=== PATIENT | female | born 1935 | race Caucasian/White ===

== ENCOUNTER → 2023-07-13 10:04 | Outpatient (REF) | payer MEDICARE, OTHER, SELFPAY ==
[2023-07-13 10:25] LABS: HDL Cholesterol 47 mg/dl; LDL Cholesterol, Calculated 59 mg/dl; Total Cholesterol 156 mg/dl (50-199); Triglyceride 250 mg/dl (10-149); Very Low Density Lipoprotein 50 mg/dl (0-30)
== END ==
LOC: OLABN 10:04
PROVIDERS: ATTENDING PHYSICIAN Student in an Organized Health Care Education/Training Program
DX: E78.5 Hyperlipidemia, unspecified (principal)
CPT/HCPCS: 36415; 80061

== ENCOUNTER → 2023-10-05 11:24 | Outpatient (REF) | payer MEDICARE, OTHER, SELFPAY ==
[2023-10-05 12:26] LABS: Blood Urea Nitrogen 15 mg/dl (7-17); Calcium 9.3 mg/dl (8.4-10.2); Carbon Dioxide 28 mmol/L (22-30); Chloride 102 mmol/L (98-107); Glucose 191 mg/dl (70-99); Potassium 4.6 mmol/L (3.5-5.1); Sodium 133 mmol/L (135-145); eGFR > 60.00
[2023-10-05 12:51] LABS: Glycohemoglobin (HgbA1c) 8.7 % (4.0-5.6)
== END ==
LOC: OLABN 11:24
PROVIDERS: ATTENDING PHYSICIAN Student in an Organized Health Care Education/Training Program
DX: R73.9 Hyperglycemia, unspecified (principal); Z79.84 Long term (current) use of oral hypoglycemic drugs
CPT/HCPCS: 36415; 80048; 83036

== ENCOUNTER → 2023-10-06 09:07 | Outpatient (REF) | payer MEDICARE, OTHER, SELFPAY ==
[2023-10-06 11:20] LABS: Glycohemoglobin (HgbA1c) 8.5 % (4.0-5.6)
== END ==
LOC: OLABN 09:07
PROVIDERS: ATTENDING PHYSICIAN Student in an Organized Health Care Education/Training Program
DX: R73.9 Hyperglycemia, unspecified (principal); Z79.84 Long term (current) use of oral hypoglycemic drugs
CPT/HCPCS: 36415; 83036

== ENCOUNTER → 2023-11-04 13:15 | Outpatient (REF) | payer MEDICARE, OTHER, SELFPAY ==
[2023-11-05 13:14] LABS: Glycohemoglobin (HgbA1c) 8.6 % (4.0-5.6)
== END ==
LOC: OLABN 13:15
PROVIDERS: ATTENDING PHYSICIAN Student in an Organized Health Care Education/Training Program
DX: R73.9 Hyperglycemia, unspecified (principal); Z79.84 Long term (current) use of oral hypoglycemic drugs
CPT/HCPCS: 36415; 83036

== ENCOUNTER → 2024-01-05 10:53 | Outpatient (REF) | payer MEDICARE, OTHER, SELFPAY ==
[2024-01-05 14:08] LABS: Blood Urea Nitrogen 18 mg/dl (7-17); Calcium 9.1 mg/dl (8.4-10.2); Carbon Dioxide 23 mmol/L (22-30); Chloride 101 mmol/L (98-107); Glucose 224 mg/dl (70-99); Potassium 4.6 mmol/L (3.5-5.1); Sodium 133 mmol/L (135-145); eGFR > 60.00
[2024-01-06 09:08] LABS: Glycohemoglobin (HgbA1c) 8.9 % (4.0-5.6)
== END ==
LOC: OLABN 10:53
PROVIDERS: ATTENDING PHYSICIAN Student in an Organized Health Care Education/Training Program
DX: R73.9 Hyperglycemia, unspecified (principal); Z79.84 Long term (current) use of oral hypoglycemic drugs
CPT/HCPCS: 36415; 80048; 83036

== ENCOUNTER → 2024-01-19 10:34 | Outpatient (REF) | payer MEDICARE, OTHER, SELFPAY ==
[2024-01-19 12:34] LABS: TSH 1.73 uIU/ml (0.47-4.68)
== END ==
LOC: OLABN 10:34
PROVIDERS: ATTENDING PHYSICIAN Student in an Organized Health Care Education/Training Program
DX: E03.9 Hypothyroidism, unspecified (principal)
CPT/HCPCS: 36415; 84443

== ENCOUNTER → 2024-04-05 11:16 | Outpatient (REF) | payer MEDICARE, OTHER, SELFPAY ==
[2024-04-05 13:12] LABS: Glycohemoglobin (HgbA1c) 8.4 % (4.0-5.6)
== END ==
LOC: OLABN 11:16
PROVIDERS: ATTENDING PHYSICIAN Student in an Organized Health Care Education/Training Program
DX: R73.9 Hyperglycemia, unspecified (principal); Z79.84 Long term (current) use of oral hypoglycemic drugs
CPT/HCPCS: 36415; 83036

== ENCOUNTER 2024-04-19 03:33 | Inpatient (IN) | payer MEDICARE, OTHER, SELFPAY ==
[2024-04-18 22:06] VITALS: BP 155/65
[2024-04-18 22:11] VITALS: BMI 38.9
[2024-04-18 22:26] LABS: % Basophils 0.3 % (0-2); % Eosinophils 0.2 % (0-6); % Lymphocytes 10.5 % (20.5-51.1); % Monocytes 11.3 % (1.7-9.3); % Neutrophils 76.7 % (42.2-75.2); Absolute Basophils 0.1 10^3/uL (0-0.2); Absolute Immature Granulocytes 0.2 10^3/uL (0-0.05); Absolute Lymphocytes 1.7 10^3/uL (1.2-3.4); Absolute Monocytes 1.8 10^3/uL (0.1-0.6); Absolute Neutrophils 12.4 10^3/uL (1.4-6.5); Hematocrit 45.8 % (37.0-47.0); Mean Corp Hgb Conc. 32.8 g/dL (33.0-37.0); Mean Corpuscular Hgb 28.9 pg (27.0-31.0); Mean Corpuscular Volume 88.2 fL (81.0-99.0); Mean Platelet Volume 11.7 fL (7.4-10.4); Nucleated Red Blood Cells % 0 %; Platelet Count 270 10^3/uL (130-400); Red Blood Cell Count 5.19 10^6/uL (4.20-5.40); Red Cell Dist. Width 13.9 % (11.5-14.5); White Blood Cell Count 16.1 10^3/uL (4.8-10.8)
[2024-04-18 22:34] LABS: Lactic Acid 1.8 mmol/L (0.7-2.0)
[2024-04-18 22:34] LABS: Glucose - Point of Care 282 mg/dl (70-99)
[2024-04-18 22:37] LABS: ALT (SGPT) 58 U/L (0-35); AST (SGOT) 53 U/L (14-36); Albumin 4.3 g/dl (3.5-5.0); Alkaline Phosphatase 90 U/L (38-126); Blood Urea Nitrogen 17 mg/dl (7-17); Calcium 9.4 mg/dl (8.4-10.2); Carbon Dioxide 26 mmol/L (22-30); Chloride 94 mmol/L (98-107); Estimated Creatinine Clearance 48 ml/min; Glucose 299 mg/dl (70-99); Potassium 4.6 mmol/L (3.5-5.1); Sodium 134 mmol/L (135-145); Total Bilirubin 1.1 mg/dl (0.2-1.3); Total Protein 7.5 g/dl (6.3-8.2); eGFR > 60.00
[2024-04-18 23:00] VITALS: BP 141/64
[2024-04-19] VITALS (14 sets, daily range): BP systolic 124–162; BP diastolic 61–84; BMI 29.6
--- NOTE | 2024-04-19 00:01 | ED.GENMED ---
History of Present Illness
General
Chief Complaint: Fainting/Passed Out
Source: family (Daughter), ambulance crew and shelter
Exam Limitations: dementia
Time Seen by Provider: 04/18/24 23:41
Nursing documentation reviewed up to this point in time: agreed with
History of Present Illness
History of Present Illness:
88-year-old female with a past medical history of hypertension, hyperlipidemia, CAD, dementia who presents to the emergency department with her daughter from [facility]; presents for evaluation of left facial swelling and unresponsive episode.
Patient is limited as a historian due to her significant dementia. She cannot meaningfully participate in history. Daughter is at bedside and helps with collateral history: Apparently patient had episode today that was witnessed by staff where she
was briefly unresponsive�apparently was still breathing but difficult to arouse for about 2 minutes. This was primary reason for ER transport however daughter also notes that patient has developed left facial redness and swelling over the past 24
hours. Daughter says that she saw her mother yesterday and her face was normal and today she has redness and swelling and appears to be very tender to the touch.
Past History
Past History
ED Past Medical History: Arrthythmia, HTN, Hypercholesterolemia, NC and Other (Urinary tract infections)
ED Past Surgical History: Appendectomy, Cardiac (Cardiac stent) and Other (Hemorrhoidectomy)
Patient has exhibited threatening behavior?: No
PSI?: No
Social History
Personal:
Living: with family
Employment: Retired
Review of Systems
Review of Systems
Unable to obtain full review of systems at this time due to: dementia
All Other Systems: Not applicable
Phy Exam
Physical Exam
Physical Exam:
General: Laying in bed resting comfortably, arousable to voice
Head: Normocephalic, atraumatic
Eyes: Conjunctiva normal, pupils equal round and reactive to light bilaterally
Throat: Airway intact, handling secretions; patient has poor dentition
Face: Swelling along the left mandible and extends slightly towards the submandibular region; there is significant erythema and tenderness to the touch in this region
Neck: Trachea midline
Lungs: Clear to auscultation bilaterally, no wheezing, rales, rhonchi
Heart: Regular rate and rhythm, no murmurs, gallops, or rubs
Abd: Soft, non distended, no apparent tenderness
Extremities: No edema in extremities, equal pulses in all extremities
Scores
Heart Failure Risk
Heart Failure Risk Score: Not Applicable
Heart Score for Chest Pain Patients
STEMI patient?: Not applicable
Withdrawal Assessment of Alcohol
Withdrawal Assessment Completed?: Not applicable
Course
Orders/Labs/Results
Orders:
Orders
04/18/24 22:05
Electrocardiogram (*1) Urgent
Reason for Study: Syncope
EKG- Treatment ONCE
04/18/24 22:17
Complete Blood Count/With Diff Urgent
Comprehensive Metabolic Panel Urgent
Lactic Acid Urgent
04/19/24 00:00
Diphenhydramine [Benadryl] 50 mg IV NOW STA
Hydrocortisone Sod Succinate [Solu-Cortef] 200 mg IV NOW STA
04/19/24 01:00
Urinalysis Reflex To Culture Urgent
04/19/24 01:01
0.9% Sodium Chloride 1000 ml [Nss] 1,000 ml IV BOLUS
Insulin Aspart [NOVOLOG vial] 5 units SC NOW STA
04/19/24 01:[address] Facial Bones W/ Iv Contrast Urgent
Reason For Exam: left facial redness, swelling
04/19/24 02:01
Lactate Level [Lactic Acid] Urgent
Blood Culture Q30M
CLEMENTINE Source: Blood/Venous
Specimen Description:
Blood Culture Q30M
CLEMENTINE Source: Blood/Venous
Specimen Description:
04/19/24 02:03
COVID-19 Antigen Urgent
Source: Nasal Swab
Troponin I Urgent
Influenza A+B Rapid Molecular Urgent
CLEMENTINE Source: Nasal Swab
Specimen Description:
04/19/24 02:30
Ampicillin/Sulbactam 3 G [Unasyn] 3 gm 0.9% Sodium Chloride 100 ml [Nss] 100 ml IV NOW
Abnormal Lab Results
04/18/24 04/18/24
22:17 22:33
WBC 16.1 H 10^3/uL
(4.8-10.8)
MCHC 32.8 L g/dL
(33.0-37.0)
MPV 11.7 H fL
(7.4-10.4)
Abs Immat Gran (auto) 0.2 H 10^3/uL
(0-0.05)
Absolute Neuts (auto) 12.4 H 10^3/uL
(1.4-6.5)
Absolute Monos (auto) 1.8 H 10^3/uL
(0.1-0.6)
Immature Gran % 1.0 H %
(0-0.5)
Neutrophils % 76.7 H %
(42.2-75.2)
Lymphocytes % 10.5 L %
(20.5-51.1)
Monocytes % 11.3 H %
(1.7-9.3)
Sodium 134 L mmol/L
(135-145)
Chloride 94 L mmol/L
(98-107)
Glucose 299 H mg/dl
(70-99)
AST 53 H U/L
(14-36)
ALT 58 H U/L
(0-35)
POC Glucose 282 H mg/dl
(70-99)
04/18/24 22:17
04/18/24 22:17
Vital Signs
Initial and Last Documented VS:
Initial Vital Signs
Temp Pulse Resp BP Pulse Ox
37.2 C 82 20 155/65 91
04/18/24 22:06 04/18/24 22:06 04/18/24 22:06 04/18/24 22:06 04/18/24 22:06
Last Documented Vital Signs
Temp Pulse Resp BP Pulse Ox
37.2 C 75 15 157/69 90
04/18/24 22:06 04/19/24 02:30 04/19/24 02:30 04/19/24 01:00 04/19/24 02:30
MDM/Problems Addressed
Differential Diagnosis Includes:
Unresponsive episode: Hypoactive delirium, dysrhythmia, seizure
Facial swelling: Dental abscess, facial cellulitis
MDM/Problems Addressed:
88-year-old female presents for evaluation after unresponsive episode; also has increased facial swelling and redness over the past 24 hours. Hypertensive but otherwise normal vitals here. Physical exam as above. Will check labs including a CBC
and a CMP. Check EKG. Will check CT of the face. Will monitor on telemetry. Reassess after the above.
Initial labs reviewed: CBC shows leukocytosis of 16.1. CMP shows hyperglycemia with a glucose of 299; no signs of DKA. Treated with subq insulin. Marginal transaminitis. Awaiting CT face. EKG shows sinus rhythm.
Chronic conditions affecting care:
Dementia
Acute Exacerbation and/or Progression of Chronic Illness:
Acutely hypertensive�no signs or symptoms of hypertensive emergency no indication for emergent antihypertensive treatment
Acutely hyperglycemic�treated with subq insulin and fluids
Acute Exacerbation and/or Progression of Chronic Illness: HTN
*Radiology
Radiology exam reviewed: radiology read reviewed
*Pulse Oximetry
Patient hypoxic: no
*EKG
Interpreted by ED Provider?: Yes
Heart Rate: 80
Rate: normal
Rhythm: sinus
Ruso: left axis deviation
Interval: normal interval
QRS Pattern: normal QRS
Ischemia: other (Inferior infarct age undetermined)
*Critical Care Note
Total Time (30-74mins, 75-104mins- exclusive of procedures): Not Applicable
Data Reviewed
Source: family, ambulance crew and shelter
Patient Management
Discussion with other providers: Hospitalist (Discussed with hospitalist)
Escalation/DeEscalation of care consider admission/obs:
Admission indicated
ED Attending Note
-
Portions of this chart may have been created with voice recognition software.� Occasional wrong word or��sound alike� substitutions may have occurred due to the inherent limitations of voice recognition software.
Discharge Plan
Departure
Patient Disposition: Admit
Date of Disposition: 04/19/24
Time of Disposition: 02:33
Admit to doctor: Luis
Presentation/result/management discussed w/ accepting MD/DO: Hospitalist
Discharge Problem:
Cellulitis of face, Syncope, Hyperglycemia
Prescriptions:
No Action
aspirin 81 MG tablet,chewable
81 mg PO DAILY
ramipril 10 MG capsule
10 mg PO DAILY
levothyroxine 50 mcg Tablet
50 mcg PO DAILY
acetaminophen 325 mg Tablet
650 mg PO Q4HPRN MDD 3000 mg PRN (Reason: mild pain/fever)
pravastatin 40 mg Tablet
40 mg PO QPM
sennosides-docusate sodium [Senokot-S] 8.6-50 mg Tablet
2 tab-cap PO DAILY
bisacodyl [Dulcolax (bisacodyl)] 10 mg Suppository
10 mg TN DAILYPRN PRN (Reason: no bm 3 days, miralax ineffective)
polyethylene glycol 3350 [Miralax] 17 gram Powder In Packet
17 g PO HSPRN PRN (Reason: constipation)
azithromycin 250 mg Tablet
250 mg PO DAILY
Patient Comments:
04/18/24: to take for 4 days, starting on 04/19/24
metformin 500 mg Tablet Extended Release 24 Hr
1,000 mg PO DAILY
Saccharomyces boulardii [Probiotic (S.boulardii)] 250 mg Capsule
250 mg PO DAILY
Patient Comments:
04/18/24: to take for 7 days, starting 04/19/24
cholecalciferol (vitamin D3) 1,250 mcg (50,000 unit) Tablet
1,250 mcg PO QMONTH
Rx Instructions:
on Thursday
Referrals:
Giuseppe Palafox DO [Family Provider] -
Interventions
Interventions:
*Risk Screen - Suicide Last Done: 04/18/24 22:12
*General Assessment Last Done: 04/18/24 22:12
*Neglect/Abuse Screening Last Done: 04/18/24 22:12
*ED COVID-19 Vaccine History Last Done: 04/18/24 22:12
ED- Cardiac Assessment Last Done: 04/18/24 22:12
ED- Neurological Assessment Last Done: 04/18/24 22:12
ED- Pulmonary Assessment Last Done: 04/18/24 22:12
Discharge Date and Time
Print Language: SPANISH
[2024-04-19] MEDS: SOLU-CORTEF 200 MG IV (00:59)
[2024-04-19] MEDS: BENADRYL 50 MG IV (01:00)
[2024-04-19] MEDS: NSS 1000 IV ×3 (01:18→08:05)
[2024-04-19] MEDS: NOVOLOG vial 5 UNITS SC (01:38)
[2024-04-19 02:24] LABS: COVID-19 Antigen Negative (Negative)
[2024-04-19 02:31] LABS: Troponin I < 0.012 ng/ml
[2024-04-19 02:42] LABS: Glucose - Point of Care 277 mg/dl (70-99)
--- NOTE | 2024-04-19 03:02 | HPS.HSE ---
Family Physician
-
Family Physician: Giuseppe Palafox,
Chief Complaint
-
L Facial Pain / Redness
History of Present Illness
Patient is an 88y F with PMH significant for ASCVD, HTN, DM-II and dementia who presents to ED from local [place] for evaluation of L-sided facial redness, swelling and discomfort. History obtained from ED staff and NH record. Patient was noted
earlier today to have redness and swelling over the L lower face. She appeared to have some discomfort at this site. Patient was started on azithromycin with initial / loading dose given for suspected infection / abscess. Later in the day,
patient had an episode of unresponsiveness for about 2 minutes. Eyes were open and she was breathing, etc - however, she did not respond to staff / follow commands during that time. She recovered after about 2 minutes and stated that she 'did not
feel well'.
Patient was transported to the ED for further evaluation and treatment.
At the time of my examination patient is sleeping comfortably. She will withdraw from noxious stimuli and make occasional annoyed 'grunts', but does not answer questions or follow commands.
This is apparently not unusual for her when sleeping according to family report to the ED nurse.
Medical History
Past Medical History
Past Medical History: Reports Other
Additional Past Medical History:
ASCVD
Hypertension
DM-II
Hypothyroidism
Dementia
Past Surgical History: Reports Other
Additional Past Surgical History:
Hemorrhoidectomy
Appendectomy
PTCA with Stent
Social History
Unable to obtain full social history at this time due to: Dementia
Living: [facility]
Family History
Family History: Unable to Obtain
Allergies / Home Medications
Allergies reflects when Allergies were last updated in [facility].
Home Medications with original date entered in [facility]
Allergy/Medication List:
Allergies
Allergy/AdvReac Type Severity Reaction Status Date / Time
iodine Allergy Unknown Verified 04/18/24 22:04
shellfish derived Allergy Chest Verified 04/18/24 22:04
pressure
Home Medications
aspirin 81 mg chewable tablet 81 mg PO DAILY 08/24/13
ramipril 10 mg capsule 10 mg PO DAILY 08/24/13
acetaminophen 325 mg tablet 650 mg PO Q4HPRN PRN mild pain/fever 02/13/22
bisacodyl 10 mg rectal suppository (Dulcolax (bisacodyl)) 10 mg NV DAILYPRN PRN no bm 3 days, miralax ineffective 02/13/22
levothyroxine 50 mcg tablet 50 mcg PO DAILY 02/13/22
pravastatin 40 mg tablet 40 mg PO QPM 02/13/22
sennosides 8.6 mg-docusate sodium 50 mg tablet (Senokot-S) 2 tab-cap PO DAILY 02/13/22
Saccharomyces boulardii 250 mg capsule (Probiotic (S.boulardii)) 250 mg PO DAILY 04/18/24
azithromycin 250 mg tablet 250 mg PO DAILY 04/18/24
cholecalciferol (vitamin D3) 1,250 mcg (50,000 unit) tablet 1,250 mcg PO QMONTH 04/18/24
metformin 500 mg tablet,extended release 24 hr 1,000 mg PO DAILY 04/18/24
polyethylene glycol 3350 17 gram oral powder packet (Miralax) 17 g PO HSPRN PRN constipation 04/18/24
Review of Systems
-
Unable to obtain full review of systems at this time due to: Dementia
Physical Exam
Vital Signs
Vital Signs
Temp Pulse Resp BP Pulse Ox
99.0 F 75 15 157/69 90
04/18/24 22:06 04/19/24 02:30 04/19/24 02:30 04/19/24 01:00 04/19/24 02:30
Physical Exam
General: Other (88y F sleeping comfortably. Does not answer questions / follow commands but does grimace, withdraw and phonate / grunt.)
HEENT: Other (Erythema and local edema at the L angle of the mouth and extending into the anterior neck. Increased warmth and evident tenderness in this area. Extremely difficult intra-oral exam due to lack of patient cooperation.)
Respiratory: Other (Decreased bilaterally. Otherwise clear.)
Cardiac: S1/S2 and Regular Rhythm; No Murmur
GI: Soft, Non Tender, Non Distended, Normal Bowel Sounds and Other (Old midline incision)
Musculoskeletal: No Clubbing, No Cyanosis and No Edema
Laboratory Results
-
04/18/24 22:17
04/18/24 22:17
Laboratory Results
Lactic Acid 2.0 mmol/L (0.7-2.0) 04/19/24 02:01
Total Bilirubin 1.1 mg/dl (0.2-1.3) 04/18/24 22:17
AST 53 U/L (14-36) H 04/18/24 22:17
ALT 58 U/L (0-35) H 04/18/24 22:17
Alkaline Phosphatase 90 U/L (38-126) 04/18/24 22:17
Troponin I < 0.012 ng/ml 04/19/24 02:03
Impression/Plan
-
A/P: Patient is an 88y F with PMH significant for HTN, DM-II and dementia who presents to ED from [place] for evaluation of unresponsive episode and L facial redness / swelling.
Left Facial Cellulitis
- Admit for further evaluation and treatment.
- CT scan done in the ED shows apical lucency at premolar tooth root - likely source of infection.
- No evidence of abscess / collection.
- IV abx with Unasyn.
- Follow for clinical improvement.
- Will likely benefit from dental evaluation as an outpatient.
Unresponsive Episode
- Unclear etiology of brief unresponsive episode earlier this evening.
- Potentially related to cellulitis / acute illness on top of baseline dementia, etc.
- Patient does have prior history of 'fainting' episodes (see prior ED evaluation).
- Monitor on tele overnight for any arrhythmia.
- Follow for any new / recurrent symptoms.
ASCVD
- Stable. Continue current CV med regimen/
Benign Hypertension
- Stable./ Continue home med regimen with holding parameters.
DM-II
- Stable. Recent A1C (04/05/24) was 8.4%.
- Hold PO medications acutely - especially following IV contrast given for CT.
- Follow glucose and cover with SSI as needed.
Hypothyroidism
- Stable. Continue current T4 supplementation.
Senile Dementia
- Stable. Monitor for any acute delirium / agitation during hospital stay.
- Not on any mood stabilizing medications at baseline.
DVT Prophylaxis: Subcut Heparin
Code Status: DNR
[2024-04-19] MEDS: UNASYN IV ×3 (03:23→13:45)
--- NOTE | 2024-04-19 04:55 | PTCARENOTE ---
Patient arrived from the ED via stretcher. Admitted to ICU room 362. Placed on CM, SR. Patient answers some yes/no questions by shaking her head. However, she is generally nonverbal. Right wrist and left upper arm significantly swollen from
infiltrated IVs. See assessment charted
[2024-04-19 05:45] LABS: Hematocrit 45.5 % (37.0-47.0); Hemoglobin 14.6 g/dL (12.0-16.0); Mean Corp Hgb Conc. 32.1 g/dL (33.0-37.0); Mean Corpuscular Hgb 29.1 pg (27.0-31.0); Mean Corpuscular Volume 90.8 fL (81.0-99.0); Mean Platelet Volume 12.1 fL (7.4-10.4); Platelet Count 225 10^3/uL (130-400); Red Blood Cell Count 5.01 10^6/uL (4.20-5.40)
[2024-04-19] MEDS: SYNTHROID PO (05:45)
[2024-04-19 06:16] LABS: Blood Urea Nitrogen 15 mg/dl (7-17); Calcium 8.5 mg/dl (8.4-10.2); Carbon Dioxide 19 mmol/L (22-30); Chloride 104 mmol/L (98-107); Estimated Creatinine Clearance 61 ml/min; Glucose 279 mg/dl (70-99); Potassium 4.8 mmol/L (3.5-5.1); Sodium 138 mmol/L (135-145); eGFR > 60.00
--- NOTE | 2024-04-19 07:16 | PTCARENOTE ---
Report given verbally to oncoming shift. Questions answered.
[2024-04-19 08:00] LABS: Glucose - Point of Care 320 mg/dl (70-99)
--- NOTE | 2024-04-19 08:11 | PTCARENOTE ---
0700 patient in bed. Left face cellulitis: mild redness and swelling noted, not warm to touch. BP check via left FA. BP 143/74 SB 56; RR 14; 94%RA. pt lethargic, but aroused . RT FA # 20 peripheral line checked and flushed. NSS and Unasyn infusing.
BS 320 ; will covered per sliding scale. UA send . HOB elevated. call mendiola within reach
[2024-04-19 08:13] LABS: Urine Albumin Trace (Neg - Trace); Urine Bilirubin Negative (Negative); Urine Character Clear (Clear); Urine Color Yellow; Urine Glucose 3+ (Negative); Urine Ketone Negative (Negative); Urine Leukocyte Trace (Negative); Urine Nitrite Positive (Negative); Urine Occult Blood Negative (Negative); Urine Specific Gravity 1.015 (<1.030); Urine Urobilinogen Negative (Neg - 1+)
[2024-04-19 08:31] LABS: Urine Urothelial Cell 0-2 /LPF (FEW)
[2024-04-19 08:32] LABS: Urine Bacteria Moderate (Negative); Urine Red Blood Cell 0-2 /HPF (0-2)
--- NOTE | 2024-04-19 08:52 | W.PN.HOSP.TC ---
Today's Communication/Plan
-
IV antibiotics. Neurology eval.
Assessment / Plan
Assessment / Plan
Physical exam:
General: Other (88y F sleeping comfortably. Does not answer questions / follow commands but does grimace, withdraw and phonate / grunt.)
HEENT: Other (Erythema and local edema at the L angle of the mouth and extending into the anterior neck. Increased warmth and evident tenderness in this area. Extremely difficult intra-oral exam due to lack of patient cooperation.)
Respiratory: Other (Decreased bilaterally. Otherwise clear.)
Cardiac: S1/S2 and Regular Rhythm; No Murmur
GI: Soft, Non Tender, Non Distended, Normal Bowel Sounds and Other (Old midline incision)
Musculoskeletal: No Clubbing, No Cyanosis and No Edema
A/P:
A/P: Patient is an 88y F with PMH significant for HTN, DM-II and dementia who presents to ED from local [place] for evaluation of unresponsive episode and L facial redness / swelling.
Left Facial Cellulitis
- Admit for further evaluation and treatment.
- CT scan done in the ED shows apical lucency at premolar tooth root - likely source of infection.
- No evidence of abscess / collection.
- IV abx with Unasyn.
- Follow for clinical improvement.
- Will likely benefit from dental evaluation as an outpatient.
-Updated daughter over the phone today
Unresponsive Episode
- Unclear etiology of brief unresponsive episode earlier this evening.
- Potentially related to cellulitis / acute illness on top of baseline dementia, etc.
- Patient does have prior history of 'fainting' episodes (see prior ED evaluation).
- Monitor on tele overnight for any arrhythmia.
- Follow for any new / recurrent symptoms.
-Will request neurology consult for further evaluation
ASCVD
- Stable. Continue current CV med regimen/
Benign Hypertension
- Stable./ Continue home med regimen with holding parameters.
DM-II
- Stable. Recent A1C (04/05/24) was 8.4%.
- Hold PO medications acutely - especially following IV contrast given for CT.
- Follow glucose and cover with SSI as needed.
Hypothyroidism
- Stable. Continue current T4 supplementation.
Senile Dementia
- Stable. Monitor for any acute delirium / agitation during hospital stay.
- Not on any mood stabilizing medications at baseline.
DVT Prophylaxis: Subcut Heparin
Code Status: DNR
Anticipated Discharge: > 48 hours
Subjective/Interval History
-
Date of Service: April 19, 2024
Patient complains of discomfort in the left neck/mandibular area. Afebrile
Objective Data
-
Labs:
Laboratory Results
04/18/24 04/19/24
22:17 05:33
WBC 16.1 H 13.0 H
Hgb 15.0 14.6
Hct 45.8 45.5
Plt Count 270 225
Sodium 134 L 138
Potassium 4.6 4.8
Chloride 94 L 104
Carbon Dioxide 26 19 L
BUN 17 15
Creatinine 0.9 0.7
Glucose 299 H 279 H
Calcium 9.4 8.5
Total Bilirubin 1.1
AST 53 H
ALT 58 H
Alkaline Phosphatase 90
Vital Signs:
Vital Signs
Temp Pulse Resp BP Pulse Ox
96.8 F L 59 14 137/83 93
04/19/24 08:00 04/19/24 07:45 04/19/24 07:45 04/19/24 06:45 04/19/24 07:45
I&O
04/18/24 04/19/24 04/20/24
06:59 06:59 06:59
Intake Total 20 20
Balance 20
--- NOTE | 2024-04-19 09:10 | CON.NEURO ---
Consultation
Order
Date of Consultation: 04/19/24
Requesting Provider: Jeff Pollard MD
Reason for Consult: r/o seizures
CC: none
HPI: This is an 88-year-old woman who presented to [facility] on 04/18/2024 with L lower face erythema and edema.
Neurology consultation was requested for an evaluation and management of a spell. According to EMR the patent had 'an episode of unresponsiveness for about 2 minutes. Eyes were open and she was breathing, etc - however, she did not respond to
staff / follow commands during that time. She recovered after about 2 minutes and stated that she 'did not feel well'.
Ms. Tavarez reports no complaints.
ER VS: 155/65 82, afebrile
EKG: NSR, QTc Int : 449 ms
PDMP: No recently prescribed medications
Labs: Glucose�299 (hemoglobin A1c (04/05/2024)�8.4), WBC�16.1, sodium�134, normal hemoglobin, lactic acid, creatinine, UA�positive for nitrates, leukocyte esterase, bacteria, glucose, negative SARS-COv2
CT head-chronic microvascular white matter ischemic disease. Small chronic lacunar infarct in the anterior limb of the right internal capsule. Atrophy.
MAR: Benadryl 50 mg once at 01:00 on 04/19/2024.
PMH: dementia, ASCVD, HTN, DLP, DM, hypothyroidism, recurrent UTIs
PSH: PTCI, appendectomy, hemorrhoidectomy
[facility]
All: Iodine
ROS: Negative for headache, change in vision, strength or sensation
General: Well developed. In no acute distress.
Cardio: Regular rate and rhythm without murmur. Extremities are without cyanosis or edema.
Neuro:
Mental Status: Lethargic, requires verbal and tactile stimulation to stay awake, oriented to name, hospital did not know her age, month, year, date of . Follows simple requests intermittently. Nonfluent. No hemineglect
Cranial Nerves: Pupils are equally round . EOMs full. Blink to threat bilaterally no ptosis. No nystagmus. V1-V3 intact to light touch and pinprick bilaterally, symmetric. Face symmetric. Impaired hearing AU. The palate elevated well. SCMs
and traps 5/5. Tongue midline. No dysarthria.
Motor: Slowly drifts upper extremities to the bed. Moves lower extremities within bed
Reflexes: Bilateral grasp. Negative clonus bilaterally
Sensory: Limited exam due to poor attention
Coordination: No tremors myoclonic movements
Gait: deferred
Assessment and Plan:
I. Transient speech/behavioral arrest. Differential diagnosis includes vascular versus epileptic.
II. Multifactorial encephalopathy (metabolic, neurodegenerative)
III. Chronic R IC infarct
-Fall precautions
-Brain MRI wo alek
-Routine EEG
-Continue aspirin 81 mg once a
-Will obtain collateral history from patient's family regarding cognitive baseline.
-DVT prophylaxis.
I personally reviewed all radiology and labs along with past medical records pertinent to current medical problems. Total time spent in patient care is 60 minutes.
Thank you for allowing us to participate in the care of this patient. We will continue to follow. Please do not hesitate to contact us with any questions or concerns.
Subjective/Objective
Subjective Data
Date of Service: April 19, 2024
Objective Data
Vital Signs
Temp Pulse Resp BP Pulse Ox
36.0 C L 59 14 137/83 93
04/19/24 08:00 04/19/24 07:45 04/19/24 07:45 04/19/24 06:45 04/19/24 07:45
Lab Results
04/19/24 05:33
04/19/24 05:33
Sodium 138 mmol/L (135-145) 04/19/24 05:33
Potassium 4.8 mmol/L (3.5-5.1) 04/19/24 05:33
BUN 15 mg/dl (7-17) 04/19/24 05:33
Glucose 279 mg/dl (70-99) H 04/19/24 05:33
Calcium 8.5 mg/dl (8.4-10.2) 04/19/24 05:33
Patient Allergies
iodine Allergy (Verified 04/18/24 22:04)
Unknown
shellfish derived Allergy (Verified 04/18/24 22:04)
Chest pressure
Medications
-
Active Medications
Generic Name Dose Route Start Last Admin
Trade Name Freq PRN Reason Stop Dose Admin
Acetaminophen 650 mg 04/19/24 04:51
Acetaminophen 325 Mg Tablet PO 05/17/24 04:50
Q4HPRN PRN
mild pain / temp > 101
Aspirin 81 mg 04/19/24 08:00
Aspirin 81 Mg Chewable Tablet PO 05/17/24 07:59
DAILY AUGUSTINA
Dextrose 12.5 grams 04/19/24 04:51
Dextrose 50% (0.5 Grams/Ml) 50 Ml Syringe IV 05/17/24 04:50
[id number] PRN
hypoglycemia
Protocol
Glucagon 1 mg 04/19/24 04:51
Glucagon 1 Mg Vial IM 05/17/24 04:50
PRN PRN
hypoglycemia
Protocol
Heparin Sodium 5,000 units 04/19/24 08:00
Heparin 5,000 Units/Ml 1 Ml Vial SC 05/17/24 07:59
Q12 AUGUSTINA
Ampicillin Sodium/Sulbactam 120 mls @ 240 mls/hr 04/19/24 08:00 04/19/24 08:02
Sodium 3 gm/ Sodium Chloride IV 120 mls
Q6H AUGUSTINA Administration
Sodium Chloride 1,000 mls @ 80 mls/hr 04/19/24 04:51 04/19/24 08:05
Nss IV 1,000 mls
.[id number] AUGUSTINA Administration
Insulin Aspart 0 units 04/19/24 07:30
Insulin Aspart Low Resistance 300 Units/3 Ml Pen.Injctr SC 05/17/24 07:29
AC AUGUSTINA
Protocol
Levothyroxine Sodium 50 mcg 04/19/24 06:00 04/19/24 05:45
Levothyroxine 50 Mcg Tablet PO 05/17/24 05:59 Not Given
DAILY@0600 AUGUSTINA
Polyethylene Glycol 17 grams 04/19/24 04:51
Polyethylene Glycol Powder 17 Grams Packet PO 05/17/24 04:50
HSPRN PRN
constipation
Pravastatin Sodium 40 mg 04/19/24 18:00
Pravastatin 40 Mg Tablet PO 05/17/24 17:59
QPM AUGUSTINA
Ramipril 10 mg 04/19/24 08:00
Ramipril (Altace) 10 Mg Capsule PO 05/17/24 07:59
DAILY AUGUSTINA
Saccharomyces Boulardii 250 mg 04/19/24 08:00
Saccharomyces Boulardi (Florastor) 250 Mg Capsule PO 05/17/24 07:59
DAILY AUGUSTINA
Senna/Docusate Sodium 1 tablet 04/19/24 08:00
Docusate W/Senna (Ivy-Colace) Tablet PO 05/17/24 07:59
DAILY AUGUSTINA
Sodium Chloride 0 flush 04/19/24 06:00
Sodium Chloride 0.9% (Flush) Syringe IV 05/17/24 05:59
PER PROTOCOL AUGUSTINA
Home Medications
�Medication �Instructions �Recorded
aspirin 81 mg chewable tablet 81 mg PO DAILY 08/24/13
ramipril 10 mg capsule 10 mg PO DAILY 08/24/13
acetaminophen 325 mg tablet 650 mg PO Q4HPRN PRN mild 02/13/22
pain/fever
bisacodyl 10 mg rectal suppository 10 mg VA DAILYPRN PRN no bm 3 02/13/22
(Dulcolax (bisacodyl)) days, miralax ineffective
levothyroxine 50 mcg tablet 50 mcg PO DAILY 02/13/22
pravastatin 40 mg tablet 40 mg PO QPM 02/13/22
sennosides 8.6 mg-docusate sodium 2 tab-cap PO DAILY 02/13/22
50 mg tablet (Senokot-S)
Saccharomyces boulardii 250 mg 250 mg PO DAILY 04/18/24
capsule (Probiotic (S.boulardii))
azithromycin 250 mg tablet 250 mg PO DAILY 04/18/24
cholecalciferol (vitamin D3) 1,250 1,250 mcg PO QMONTH 04/18/24
mcg (50,000 unit) tablet
metformin 500 mg tablet,extended 1,000 mg PO DAILY 04/18/24
release 24 hr
polyethylene glycol 3350 17 gram 17 g PO HSPRN PRN constipation 04/18/24
oral powder packet (Miralax)
Vital Signs and Labs
-
Vital Signs and Labs:
Vital Signs
Temp Pulse Resp BP Pulse Ox
36.0 C L 59 14 137/83 93
04/19/24 08:00 04/19/24 07:45 04/19/24 07:45 04/19/24 06:45 04/19/24 07:45
Lab Results
04/19/24 05:33
04/19/24 05:33
Sodium 138 mmol/L (135-145) 04/19/24 05:33
Potassium 4.8 mmol/L (3.5-5.1) 04/19/24 05:33
BUN 15 mg/dl (7-17) 04/19/24 05:33
Glucose 279 mg/dl (70-99) H 04/19/24 05:33
Calcium 8.5 mg/dl (8.4-10.2) 04/19/24 05:33
Medications
-
Medications:
Generic Name Dose Route Start Last Admin
Trade Name Leila PRN Reason Stop Dose Admin
Acetaminophen 650 mg 04/19/24 04:51
Acetaminophen 325 Mg Tablet PO 05/17/24 04:50
Q4HPRN PRN
mild pain / temp > 101
Aspirin 81 mg 04/19/24 08:00
Aspirin 81 Mg Chewable Tablet PO 05/17/24 07:59
DAILY AUGUSTINA
Dextrose 12.5 grams 04/19/24 04:51
Dextrose 50% (0.5 Grams/Ml) 50 Ml Syringe IV 05/17/24 04:50
[id number] PRN
hypoglycemia
Protocol
Glucagon 1 mg 04/19/24 04:51
Glucagon 1 Mg Vial IM 05/17/24 04:50
PRN PRN
hypoglycemia
Protocol
Heparin Sodium 5,000 units 04/19/24 08:00
Heparin 5,000 Units/Ml 1 Ml Vial SC 05/17/24 07:59
Q12 AUGUSTINA
Ampicillin Sodium/Sulbactam 120 mls @ 240 mls/hr 04/19/24 08:00 04/19/24 08:02
Sodium 3 gm/ Sodium Chloride IV 120 mls
Q6H AUGUSTINA Administration
Sodium Chloride 1,000 mls @ 80 mls/hr 04/19/24 04:51 04/19/24 08:05
Nss IV 1,000 mls
.[id number] AUGUSTINA Administration
Insulin Aspart 0 units 04/19/24 07:30 04/19/24 11:30
Insulin Aspart Low Resistance 300 Units/3 Ml Pen.Injctr SC 05/17/24 07:29 Not Given
AC AUGUSTINA
Protocol
Levothyroxine Sodium 50 mcg 04/19/24 06:00 04/19/24 05:45
Levothyroxine 50 Mcg Tablet PO 05/17/24 05:59 Not Given
DAILY@0600 AUGUSTINA
Polyethylene Glycol 17 grams 04/19/24 04:51
Polyethylene Glycol Powder 17 Grams Packet PO 05/17/24 04:50
HSPRN PRN
constipation
Pravastatin Sodium 40 mg 04/19/24 18:00
Pravastatin 40 Mg Tablet PO 05/17/24 17:59
QPM AUGUSTINA
Ramipril 10 mg 04/19/24 08:00
Ramipril (Altace) 10 Mg Capsule PO 05/17/24 07:59
DAILY AUGUSTINA
Saccharomyces Boulardii 250 mg 04/19/24 08:00
Saccharomyces Boulardi (Florastor) 250 Mg Capsule PO 05/17/24 07:59
DAILY AUGUSTINA
Senna/Docusate Sodium 1 tablet 04/19/24 08:00
Docusate W/Senna (Ivy-Colace) Tablet PO 05/17/24 07:59
DAILY AUGUSTINA
Sodium Chloride 0 flush 04/19/24 06:00
Sodium Chloride 0.9% (Flush) Syringe IV 05/17/24 05:59
PER PROTOCOL AUGUSTINA
Home Medications
-
Home Medications
aspirin 81 mg chewable tablet 81 mg PO DAILY 08/24/13
ramipril 10 mg capsule 10 mg PO DAILY 08/24/13
acetaminophen 325 mg tablet 650 mg PO Q4HPRN PRN mild pain/fever 02/13/22
bisacodyl 10 mg rectal suppository (Dulcolax (bisacodyl)) 10 mg VA DAILYPRN PRN no bm 3 days, miralax ineffective 02/13/22
levothyroxine 50 mcg tablet 50 mcg PO DAILY 02/13/22
pravastatin 40 mg tablet 40 mg PO QPM 02/13/22
sennosides 8.6 mg-docusate sodium 50 mg tablet (Senokot-S) 2 tab-cap PO DAILY 02/13/22
Saccharomyces boulardii 250 mg capsule (Probiotic (S.boulardii)) 250 mg PO DAILY 04/18/24
azithromycin 250 mg tablet 250 mg PO DAILY 04/18/24
cholecalciferol (vitamin D3) 1,250 mcg (50,000 unit) tablet 1,250 mcg PO QMONTH 04/18/24
metformin 500 mg tablet,extended release 24 hr 1,000 mg PO DAILY 04/18/24
polyethylene glycol 3350 17 gram oral powder packet (Miralax) 17 g PO HSPRN PRN constipation 04/18/24
[2024-04-19] MEDS: NOVOLOG FLEXPEN-LOW RESISTANCE SC (11:30)
[2024-04-19] MEDS: NOVOLOG FLEXPEN-LOW RESISTANCE 4 UNITS SC (11:35)
[2024-04-19] MEDS: LOW STRENGTH ASPIRIN 81 MG PO (11:43)
[2024-04-19] MEDS: HEPARIN 5000 UNITS SC ×2 (11:43→20:29)
[2024-04-19] MEDS: SENOKOT-S PO (11:43)
[2024-04-19] MEDS: FLORASTOR PO (11:43)
[2024-04-19] MEDS: ALTACE 10 MG PO (11:43)
[2024-04-19 11:44] LABS: Glucose - Point of Care 324 mg/dl (70-99)
--- NOTE | 2024-04-19 13:38 | CM ---
CM following re: discharge planning.
Reviewed pt's chart, met with pt and spoke to [facility] admissions insole department worker Alek and RN Farideh.
Pt is an 88 year old female, admitted with primary dx of Left Facial Cellulitis.
Pt was sleeping during my attempt marianne interview her. Per [facility] services coordinator Alek, pt is a manager long term care care resident at [facility], on Medicaid 15 day bed hold. per [facility] RN Farideh, pt is forgetful at baseline, using a walker for a short distance,
wheelchair for a long distance, feeds herself with set up, continent. Per admissions department, pt will be accepted back when medically stable.
[facility] nursing station for nursing report: [phone]
D/C plan: Return back to [facility] for a correction carfe.
CM will follow with discharge plan updates as hospitalization progresses
--- NOTE | 2024-04-19 14:09 | PTCARENOTE ---
patient will be [place] to room 436 [facility] [place] Daughter Leda called message left.
pt awake, drowsy, confused at baseline
SB 56; BP 115/57; RR 12; 95RA
Abdomen soft non-tender; Incontinent of urine . Purwick in place
RT peripheral line no redness no swelling. IV infusing aBD infusing per order
Report given via phone
--- NOTE | 2024-04-19 15:01 | PTOTSP ---
Speech Language Pathology
Pt seen for clinical bedside swallow evaluation. Sleeping upon arrival, but able to rouse adequately for evaluation. Non-verbal throughout evaluation. Redness noted to extend from L face down into L neck. RN and MD notified. P.O. trials of
puree, regular solids, and thin liquids provided. Adequate mastication, bolus formation, and A-P transit noted with no oral residue. No overt signs of aspiration.
Recommend:
(1) Regular solids/thin liquids
(2) Aspiration precautions: eat only when alert, sit upright, slow rate
(3) Meds crushed in puree
(4) BOLT MAKER to continue to follow
--- NOTE | 2024-04-19 15:20 | PTCARENOTE ---
Report given to Leti rausch from 4th floor. pt transfer via bed
--- NOTE | 2024-04-19 15:39 | PTCARENOTE ---
04/19- Patient transferred and oriented to unit without issue. AAOX1, confused, drowsy but responsive. Purewick in place, draining clear Kamila urine. Patient denies any needs or pain at this time.
--- NOTE | 2024-04-19 15:58 | EEGC.RPT ---
Continuous EEG Report
Report
TECHNICAL REMARKS:��This is a technically satisfactory eighteen channel record employing 21 disc electrodes applied according to a measured international 10-20 electrode placement system.��There were no significant technical difficulties.��The study
was done on a [employer] System.
�
CLINICAL HISTORY: This is an 88 year old woman with encephalopathy.� This study was requested to look for epileptiform abnormalities.
STUDY DURATION:� 29 min,�54 secs
REPORT: �At the onset of the EEG, the patient is drowsy. The background activity during wakefulness consists of 6-7 Hz, impersistent, posteriorly dominant, moderate amplitude, symmetric, and rhythmic activity. Continuous generalized, 2-3 Hz, 30-50
uV at times sharply contoured polymorphic delta activity with infrequent triphasic waves was seen.� Stepwise intermittent photic stimulation did not induce additional abnormalities. Hyperventilation was not performed. Drowsiness is characterized by
low amplitude mixed frequency activity, decreased eye blinking, and muscle artifact. No epileptiform activity was seen. Ns 2 sleep was reached.
�
IMPRESSION: �This is an abnormal awake and asleep EEG due to a moderate-to severe generalized slowing and infrequent triphasic waves. This finding indicates diffuse cerebral dysfunction, nonspecific in terms of etiology.�
�
[2024-04-19 16:28] LABS: Glucose - Point of Care 244 mg/dl (70-99)
--- NOTE | 2024-04-19 16:59 | PHA.VAN.IN ---
Assessment
- Assessment
Renal Function: Appears similar to baseline, Other (04/18/24)
Concomitant Antimicrobials: ZOSYN
- Previous Dosing Experience
Previous Regimen: NONE
AUC Dosing Plan
- Dosing Variables
Dosing Weight (kg): 75.7
Dosing CrCl (ml/min): 53
Vd coefficient (L/kg): 0.7
- Empiric Dosing
Initial / Loading Dose: 2GM
Maintenance Regimen: 1250MG IV Q24H
Estimated AUC (mcg*h/mL): 505
Estimated Peak (mcg*h/mL): 34.3
Estimated Trough (mcg/ml): 11.6
Estimated Half Life (H): 14.3
Pharmacokinetics Vancomycin I
- -
Patient Age: 88
Patient Sex: Female
Vancomycin Day #: 1
Indication: Eye Or Ent Infection ([L] FACIAL CELLULITIS)
Requesting Provider: JEFFERS
Height / Weight:
Height 5 ft 3 in
Actual Weight 75.7 kg
- Vital Signs / Lab Results
Temp Pulse Resp BP Pulse Ox
97.8 F 56 18 153/71 97
04/19/24 15:25 04/19/24 15:25 04/19/24 15:25 04/19/24 15:25 04/19/24 15:40
Lab Results - Hematology
04/18/24 04/19/24
22:17 05:33
WBC 16.1 H 13.0 H
Lab Results - Chemistry
04/18/24 04/19/24
22:17 05:33
BUN 17 15
Creatinine 0.9 0.7
Estimated Creat Clear 48 61
Albumin 4.3
04/18/24 04/19/24
22:17 02:01
Lactic Acid 1.8 2.0
Lab Results - Urine
04/19/24
08:00
Urine Nitrite (Reflex) Positive A
Leukocyte Esterase Rfl Trace A
Urine WBC (Reflex) 6-10
Ur Squamous Epith Cells 3-5
Urine Bacteria (Reflex) Moderate A
Microbiology Results
04/19/24 02:03 Influenza Types A & B (LYNN) - Final
Nasal Swab Negative for Influenza A & B, NAAT
Negative results must be combined with clinical observations
and patient history.
Nucleic Acid Amplification test (NAAT)performed on the
[employer] platform.
[2024-04-19] MEDS: PRAVACHOL 40 MG PO (17:37)
[2024-04-19] MEDS: NOVOLOG FLEXPEN-MODERATE RESISTANCE 3 UNITS SC (17:38)
[2024-04-19] MEDS: VANCOCIN 540 MG IV (17:38)
[2024-04-19] MEDS: ZOSYN 50 IV (20:27)
[2024-04-19 21:04] LABS: Glucose - Point of Care 223 mg/dl (70-99)
[2024-04-20] MEDS: ZOSYN 50 IV ×4 (01:23→19:24)
[2024-04-20] MEDS: NSS 1000 IV (02:31)
[2024-04-20] MEDS: SYNTHROID 50 MCG PO (05:06)
[2024-04-20] MEDS: VANCOCIN 275 MG IV (05:27)
[2024-04-20 07:17] VITALS: BP 151/70
[2024-04-20 07:20] LABS: Glucose - Point of Care 281 mg/dl (70-99)
[2024-04-20 07:59] LABS: % Basophils 0.2 % (0-2); % Eosinophils 1.5 % (0-6); % Immature Granulocytes 0.7 % (0-0.5); % Lymphocytes 15.4 % (20.5-51.1); % Monocytes 8.4 % (1.7-9.3); % Neutrophils 73.8 % (42.2-75.2); Absolute Eosinophils 0.2 10^3/uL (0-0.7); Absolute Immature Granulocytes 0.1 10^3/uL (0-0.05); Absolute Lymphocytes 1.7 10^3/uL (1.2-3.4); Absolute Monocytes 0.9 10^3/uL (0.1-0.6); Hematocrit 36.1 % (37.0-47.0); Hemoglobin 11.8 g/dL (12.0-16.0); Mean Corp Hgb Conc. 32.7 g/dL (33.0-37.0); Mean Corpuscular Hgb 29.5 pg (27.0-31.0); Mean Corpuscular Volume 90.3 fL (81.0-99.0); Mean Platelet Volume 12.4 fL (7.4-10.4); Nucleated Red Blood Cells % 0 %; Platelet Count 248 10^3/uL (130-400); Red Cell Dist. Width 14.1 % (11.5-14.5); White Blood Cell Count 10.9 10^3/uL (4.8-10.8)
[2024-04-20] MEDS: ALTACE 10 MG PO (08:36)
[2024-04-20] MEDS: LOW STRENGTH ASPIRIN 81 MG PO (08:36)
[2024-04-20] MEDS: SENOKOT-S 1 TABLET PO (08:36)
[2024-04-20] MEDS: FLORASTOR 250 MG PO (08:37)
[2024-04-20] MEDS: HEPARIN 5000 UNITS SC ×2 (08:37→19:25)
--- NOTE | 2024-04-20 08:40 | W.PN.HOSP.TC ---
Addendum entered and electronically signed by Jeff Pollard MD 04/20/24 15:15:
Left Medial Buttock pressure injury stage II, present on admission
Original Note:
Today's Communication/Plan
-
MRI of the brain. IV antibiotics. Panoramic x-ray
Assessment / Plan
Assessment / Plan
Physical exam:
General: Acutely ill
HEENT: Normocephalic, Atraumatic and Moist Mucous Membranes. Left mandible erythema and tenderness and warmth.
Respiratory: Clear to Auscultation; Negative Wheezes, Rales or Rhonchi
Cardiac: Regular Rhythm and S1/S2
GI: Soft, Nontender and Nondistended
Musculoskeletal: No Clubbing, No Cyanosis and No Edema
Neuro: Awake, Alert and disoriented, weakness unclear if more focal in the left
Psych: Calm
A/P:
Left maxillofacial cellulitis, odontogenic in nature:
Initially Unasyn but switched to Zosyn and vancomycin due to concerns of spreading-clinically stable today.
Obtain MRSA
Seen CT scan for facial bones
Obtain panoramic x-ray today
Pain control
Discussed with daughter over the phone yesterday
Will need dentist referral as outpatient
Transient decreased responsiveness and weakness:
Rule out stroke and or seizures
Neurology consulted
EEG
Plan for MRI of the brain-give Ativan prior to test.
PT OT eval
Senile dementia:
Monitor behavior and mental status
Hypertension:
Continue ramipril 10 mg daily
Monitor blood pressure adjust medications accordingly
Hyperlipidemia:
Continue pravastatin 40 mg p.o. every night
Diabetes mellitus type 2:
Continue insulin sliding scale but increase to moderate coverage yesterday
Beginning of April hemoglobin A1c was 8.4
Resume metformin
Monitor blood sugar and adjust medications accordingly
Hypothyroidism:
Continue levothyroxine 50 mg p.o. daily
DVT prophylaxis:
Heparin SQ
CODE STATUS:
DNR
Anticipated Discharge: > 48 hours
Subjective/Interval History
-
Date of Service: April 20, 2024
Patient with erythema and discomfort of the left mandible area and she feels it is about the same but not worse. Weakness present. Afebrile
Objective Data
-
Labs:
Laboratory Results
04/20/24
06:34
WBC 10.9 H
Hgb 11.8 L
Hct 36.1 L
Plt Count 248
Sodium Pending
Potassium Pending
Chloride Pending
Carbon Dioxide Pending
BUN Pending
Creatinine Pending
Glucose Pending
Calcium Pending
Vital Signs:
Vital Signs
Temp Pulse Resp BP Pulse Ox
97.6 F 57 18 151/70 99
04/20/24 07:17 04/20/24 07:17 04/20/24 07:17 04/20/24 07:17 04/20/24 07:17
I&O
04/19/24 04/20/24 04/21/24
06:59 06:59 06:59
Intake Total 580 / 580
Output Total 200 / 200
Balance 380 / 380
[2024-04-20] MEDS: NOVOLOG FLEXPEN-MODERATE RESISTANCE 5 UNITS SC (08:55)
--- NOTE | 2024-04-20 09:36 | PN.CDI ---
CDI
- -
CDI:
Physician Documentation Request
Admit Date: 04/19/24 03:33
Dear Doctor Latrice,
Patient admitted for cellulitis.
Selected Entries
04/19/24
05:00
Pressure injury appearance [Present on admission Left Medial Buttock] Granulation
Pressure injury appearance comment [Present on admission Left Medial Buttock] scabbed over
Pressure injury stage [Present on admission Left Medial Buttock] Stage 2
Surrounding Skin - [Present on admission Left Medial Buttock] Dry and intact
Undermining location and depth (cm) [Present on admission Left Medial Buttock] 1 x 1
Physician documentation of the type and location of wounds is required for compliant documentation. Based on the above clinical findings and your assessment, please provide the following in your progress note:
1. Location of the ulcer/wound, including laterality.
2. Type (etiology) of ulcer/wound:
- Diabetic ulcer
- Arterial (ischemic) ulcer
- Traumatic wound
- Venous stasis ulcer
- Pressure (decubitus) ulcer
- Non-healing surgical wound
- Other
- Unable to determine
3. For a non-pressure ulcer, please indicate the depth/severity:
- Limited to the breakdown of skin
- With fat layer exposed
- With necrosis of muscle
- With necrosis of bone
- Other
- Unable to determine
4. If a pressure ulcer, please also include the stage* of the ulcer:
- Stage 1 - Skin intact, non-blanchable redness
- Stage 2 - Partial thickness loss of dermis, includes intact or open blister
- Stage 3 - Full thickness tissue not including bone, tendon or muscle
- Stage 4 - Full thickness tissue loss, including exposed bone, tendon or muscle
- Unstageable - Full thickness loss in which the base of the ulcer is covered by slough (yellow, christy, perdomo, green or brown) and/or eschar (christy, brown or black) in the wound bed.
- Unable to determine
Use of terms such as suspected, likely, concern for, or probable (associated with a specific diagnosis that is being evaluated, monitored, or treated as if it exists) are acceptable and can be coded in the inpatient setting, when documented at the
time of discharge.
Thank you,
Megan Verdugo RN, BSN
CDI Specialist
Available via [place] text
Please use your independent medical judgment in providing your response.
*Source: National Pressure Ulcer Advisory Panel (NPUAP)
[2024-04-20 09:47] LABS: Blood Urea Nitrogen 15 mg/dl (7-17); Calcium 8.3 mg/dl (8.4-10.2); Carbon Dioxide 22 mmol/L (22-30); Chloride 106 mmol/L (98-107); Estimated Creatinine Clearance 53 ml/min; Glucose 239 mg/dl (70-99); Potassium 4.4 mmol/L (3.5-5.1); Sodium 141 mmol/L (135-145); eGFR > 60.00
--- NOTE | 2024-04-20 10:02 | PHA.VAN.FU ---
Vancomycin Assessment / Plan
- Assessment
Renal Function: Stable
WBC's are: Trending Down
Concomitant Antimicrobials: piperacillin/tazobactam
- Dosing Plan
Continue: Vanc 1250mg Q24H
- Monitoring Plan
No level(s) ordered at this time: consider levels in next few days
- Follow Up
Pharmacy will continue to follow.
Vancomycin Follow UP
- -
Patient Age: 88
Patient Sex: Female
Vancomycin Day #: 2
Indication: Eye Or Ent Infection
Requesting Provider: Dr. Pollard
Pertinent Antimicrobial Allergies:
no pertinent antibiotic allergies
Height / Weight:
Height 5 ft 3 in
Actual Weight 75.7 kg
Pertinent Past Medical History: DM II
- Vital Signs / Lab Results
Temp Pulse Resp BP Pulse Ox
97.6 F 57 18 151/70 99
04/20/24 07:17 04/20/24 07:17 04/20/24 07:17 04/20/24 07:17 04/20/24 07:17
Lab Results - Hematology
04/18/24 04/19/24 04/20/24
22:17 05:33 06:34
WBC 16.1 H 13.0 H 10.9 H
Lab Results - Chemistry
04/18/24 04/19/24 04/20/24
22:17 05:33 06:34
BUN 17 15 15
Creatinine 0.9 0.7 0.7
Estimated Creat Clear 48 61 53
Albumin 4.3
04/18/24 04/19/24
22:17 02:01
Lactic Acid 1.8 2.0
Microbiology Results
04/19/24 08:00 Urine Culture - Final
Urine NO GROWTH
04/19/24 06:42 MRSA Screen - Final
Nose No Methicillin Resistant Staphylococcus aureus isolated.
04/19/24 02:01 Blood Culture - Preliminary
Blood/Venous No Growth in 24 hours- Final report to follow
04/19/24 02:01 Blood Culture - Preliminary
Blood/Venous No Growth in 24 hours- Final report to follow
04/19/24 02:03 Influenza Types A & B (LYNN) - Final
Nasal Swab Negative for Influenza A & B, NAAT
Negative results must be combined with clinical observations
and patient history.
Nucleic Acid Amplification test (NAAT)performed on the
[employer] platform.
[2024-04-20 10:07] VITALS: BP 143/58; PULSE 52; O2SAT 95
[2024-04-20 11:37] LABS: Glucose - Point of Care 227 mg/dl (70-99)
[2024-04-20] MEDS: NOVOLOG FLEXPEN-MODERATE RESISTANCE 3 UNITS SC (12:34)
[2024-04-20] MEDS: GLUCOPHAGE XR EXTENDED RELEASE 1000 MG PO (13:39)
--- NOTE | 2024-04-20 14:30 | W.PN.NEURO.1 ---
Today's Communication / Plan
-
.
Subjective/Objective
Subjective Data
Date of Service: April 20, 2024
Neurology Consultation Note
Ms. Tavarez reports no complaints.
Routine EEG showed moderate-to severe generalized slowing and infrequent triphasic waves, no epileptiform abnormalities.
PMH: dementia, ASCVD, HTN, DLP, DM, hypothyroidism, recurrent UTIs
PSH: PTCI, appendectomy, hemorrhoidectomy
SH: [facility]
All: Iodine
ROS: Negative for headache, change in vision, strength or sensation
General: Well developed. In no acute distress.
Cardio: Regular rate and rhythm without murmur. Extremities are without cyanosis or edema.
Neuro:
Mental Status: Awake, oriented to name and only. Follow simple requests. Nonfluent. No hemineglect
Cranial Nerves: Pupils are equally round . EOMs full. Blink to threat bilaterally no ptosis. No nystagmus. V1-V3 intact to light touch and pinprick bilaterally, symmetric. Face symmetric. Impaired hearing AU. The palate elevated well. SCMs
and traps 5/5. Tongue midline. No dysarthria.
Motor: all limbs are antigravity
Reflexes: Bilateral grasp. Negative clonus bilaterally
Sensory: Limited exam due to poor attention
Coordination: No tremors myoclonic movements
Gait: deferred
Assessment and Plan:
I. Transient speech/behavioral arrest. Differential diagnosis includes vascular versus epileptic.
II. Multifactorial encephalopathy (metabolic, neurodegenerative)
III. Chronic R IC infarct
-Fall precautions
-Brain MRI wo alek
-Continue aspirin 81 mg QD
-DVT prophylaxis.
I personally reviewed all radiology and labs along with past medical records pertinent to current medical problems. Total time spent in patient care is 35 minutes.
Thank you for allowing us to participate in the care of this patient. We will continue to follow. Please do not hesitate to contact us with any questions or concerns.
Objective Data
Vital Signs
Temp Pulse Resp BP Pulse Ox
36.4 C 57 18 151/70 99
04/20/24 07:17 04/20/24 07:17 04/20/24 07:17 04/20/24 07:17 04/20/24 08:00
Lab Results
04/20/24 06:34
04/20/24 06:34
Sodium 141 mmol/L (135-145) 04/20/24 06:34
Potassium 4.4 mmol/L (3.5-5.1) 04/20/24 06:34
BUN 15 mg/dl (7-17) 04/20/24 06:34
Glucose 239 mg/dl (70-99) H 04/20/24 06:34
Calcium 8.3 mg/dl (8.4-10.2) L 04/20/24 06:34
Patient Allergies
iodine Allergy (Verified 04/18/24 22:04)
Unknown
shellfish derived Allergy (Verified 04/18/24 22:04)
Chest pressure
Vital Signs and Labs
-
Vital Signs and Labs:
Vital Signs
Temp Pulse Resp BP Pulse Ox
36.4 C 76 16 132/64 91
04/20/24 15:26 04/20/24 15:26 04/20/24 15:26 04/20/24 15:26 04/20/24 15:26
Lab Results
04/20/24 06:34
04/20/24 06:34
Sodium 141 mmol/L (135-145) 04/20/24 06:34
Potassium 4.4 mmol/L (3.5-5.1) 04/20/24 06:34
BUN 15 mg/dl (7-17) 04/20/24 06:34
Glucose 239 mg/dl (70-99) H 04/20/24 06:34
Calcium 8.3 mg/dl (8.4-10.2) L 04/20/24 06:34
Medications
-
Medications:
Generic Name Dose Route Start Last Admin
Trade Name Freq PRN Reason Stop Dose Admin
Acetaminophen 650 mg 04/19/24 04:51
Acetaminophen 325 Mg Tablet PO 05/17/24 04:50
Q4HPRN PRN
mild pain / temp > 101
Aspirin 81 mg 04/19/24 08:00 04/20/24 08:36
Aspirin 81 Mg Chewable Tablet PO 05/17/24 07:59 81 mg
DAILY AUGUSTINA Administration
Dextrose 12.5 grams 04/19/24 12:17
Dextrose 50% (0.5 Grams/Ml) 50 Ml Syringe IV 05/17/24 12:16
[id number] PRN
hypoglycemia
Protocol
Glucagon 1 mg 04/19/24 12:17
Glucagon 1 Mg Vial IM 05/17/24 12:16
PRN PRN
hypoglycemia
Protocol
Heparin Sodium 5,000 units 04/19/24 08:00 04/20/24 08:37
Heparin 5,000 Units/Ml 1 Ml Vial SC 05/17/24 07:59 5,000 units
Q12 AUGUSTINA Administration
Piperacillin Sod/Tazobactam Sod 3.375 gram in 50 mls @ 100 mls/hr 04/19/24 20:00 04/20/24 14:34
Zosyn IV 50 mls
Q6H AUGUSTINA Administration
Vancomycin HCl 1,250 mg/ 275 mls @ 183.33 mls/hr 04/20/24 06:00 04/20/24 05:27
Sodium Chloride IV 275 mls
Q24H AUGUSTINA Administration
Protocol
Insulin Aspart 0 units 04/19/24 16:30 04/20/24 12:34
Insulin Aspart Moderate Resistance 300 Units/3 Ml Pen.Injctr SC 05/17/24 16:29 3 units
AC AUGUSTINA Administration
Protocol
Levothyroxine Sodium 50 mcg 04/19/24 06:00 04/20/24 05:06
Levothyroxine 50 Mcg Tablet PO 05/17/24 05:59 50 mcg
DAILY@0600 AUGUSTINA Administration
Metformin HCl 1,000 mg 04/20/24 13:00 04/20/24 13:39
Metformin 500 Mg Extended Release Tablet PO 05/18/24 12:59 1,000 mg
DAILY AUGUSTINA Administration
Polyethylene Glycol 17 grams 04/19/24 04:51
Polyethylene Glycol Powder 17 Grams Packet PO 05/17/24 04:50
HSPRN PRN
constipation
Pravastatin Sodium 40 mg 04/19/24 18:00 04/19/24 17:37
Pravastatin 40 Mg Tablet PO 05/17/24 17:59 40 mg
QPM AUGUSTINA Administration
Ramipril 10 mg 04/19/24 08:00 04/20/24 08:36
Ramipril (Altace) 10 Mg Capsule PO 05/17/24 07:59 10 mg
DAILY AUGUSTINA Administration
Saccharomyces Boulardii 250 mg 04/19/24 08:00 04/20/24 08:37
Saccharomyces Boulardi (Florastor) 250 Mg Capsule PO 05/17/24 07:59 250 mg
DAILY AUGUSTINA Administration
Senna/Docusate Sodium 1 tablet 04/19/24 08:00 04/20/24 08:36
Docusate W/Senna (Ivy-Colace) Tablet PO 05/17/24 07:59 1 tablet
DAILY AUGUSTINA Administration
Sodium Chloride 0 flush 04/19/24 06:00
Sodium Chloride 0.9% (Flush) Syringe IV 05/17/24 05:59
PER PROTOCOL AUGUSTINA
Home Medications
-
Home Medications
aspirin 81 mg chewable tablet 81 mg PO DAILY Blood Clot Prevention/Tx 08/24/13
ramipril 10 mg capsule 10 mg PO DAILY Blood Pressure 08/24/13
acetaminophen 325 mg tablet 650 mg PO Q4HPRN PRN mild pain/fever 02/13/22
bisacodyl 10 mg rectal suppository (Dulcolax (bisacodyl)) 10 mg [place] DAILYPRN PRN no bm 3 days, miralax ineffective 02/13/22
levothyroxine 50 mcg tablet 50 mcg PO DAILY Thyroid 02/13/22
pravastatin 40 mg tablet 40 mg PO QPM High Cholesterol 02/13/22
sennosides 8.6 mg-docusate sodium 50 mg tablet (Senokot-S) 2 tab-cap PO DAILY Constipation 02/13/22
Saccharomyces boulardii 250 mg capsule (Probiotic (S.boulardii)) 250 mg PO DAILY Gastrointestinal Issue 04/18/24
azithromycin 250 mg tablet 250 mg PO DAILY Infection 04/18/24
cholecalciferol (vitamin D3) 1,250 mcg (50,000 unit) tablet 1,250 mcg PO QMONTH Supplement 04/18/24
metformin 500 mg tablet,extended release 24 hr 1,000 mg PO DAILY Diabetes 04/18/24
polyethylene glycol 3350 17 gram oral powder packet (Miralax) 17 g PO HSPRN PRN constipation 04/18/24
--- NOTE | 2024-04-20 15:06 | CM ---
Addendum entered by Hien George 04/20/24 15:13:

Original Note:
Chart reviewed patient was admitted from [facility] where patient resides, updated clinicals sent through [facility], patient to return to [facility] when stable.
[facility]
Report: [phone]
Plan; to return to [facility].
[2024-04-20 15:26] VITALS: BP 132/64
[2024-04-20] MEDS: ATIVAN 1 MG IV (15:42)
[2024-04-20] MEDS: NSS (PRESERVATIVE FREE) 0.5 ML IV (15:43)
[2024-04-20 17:36] LABS: Glucose - Point of Care 185 mg/dl (70-99)
[2024-04-20] MEDS: NOVOLOG FLEXPEN-MODERATE RESISTANCE 1 UNITS SC (18:16)
[2024-04-20] MEDS: PRAVACHOL 40 MG PO (18:16)
[2024-04-20] MEDS: TYLENOL 650 MG PO (18:32)
[2024-04-20 21:22] LABS: Glucose - Point of Care 245 mg/dl (70-99)
[2024-04-20 23:00] VITALS: BP 127/54
[2024-04-21] MEDS: ZOSYN 50 IV ×4 (01:38→19:20)
[2024-04-21] MEDS: SYNTHROID 50 MCG PO (05:39)
[2024-04-21] MEDS: VANCOCIN 275 MG IV (05:39)
[2024-04-21 06:01] VITALS: BMI 31.2
[2024-04-21 07:30] VITALS: BP 132/55
[2024-04-21 07:47] LABS: Glucose - Point of Care 266 mg/dl (70-99)
[2024-04-21 08:32] LABS: % Basophils 0.6 % (0-2); % Eosinophils 2.1 % (0-6); % Immature Granulocytes 0.6 % (0-0.5); % Lymphocytes 24.4 % (20.5-51.1); % Monocytes 7.9 % (1.7-9.3); % Neutrophils 64.4 % (42.2-75.2); Absolute Eosinophils 0.1 10^3/uL (0-0.7); Absolute Lymphocytes 1.5 10^3/uL (1.2-3.4); Absolute Monocytes 0.5 10^3/uL (0.1-0.6); Hematocrit 37.5 % (37.0-47.0); Hemoglobin 11.5 g/dL (12.0-16.0); Mean Corp Hgb Conc. 30.7 g/dL (33.0-37.0); Mean Corpuscular Hgb 28.3 pg (27.0-31.0); Mean Corpuscular Volume 92.4 fL (81.0-99.0); Nucleated Red Blood Cells % 0 %; Red Blood Cell Count 4.06 10^6/uL (4.20-5.40); Red Cell Dist. Width 14.2 % (11.5-14.5); White Blood Cell Count 6.2 10^3/uL (4.8-10.8)
[2024-04-21 08:43] LABS: Blood Urea Nitrogen 18 mg/dl (7-17); Calcium 8.1 mg/dl (8.4-10.2); Carbon Dioxide 18 mmol/L (22-30); Chloride 108 mmol/L (98-107); Estimated Creatinine Clearance 42 ml/min; Glucose 237 mg/dl (70-99); Potassium 4.3 mmol/L (3.5-5.1); Sodium 137 mmol/L (135-145); eGFR > 60.00
[2024-04-21] MEDS: NOVOLOG FLEXPEN-MODERATE RESISTANCE 5 UNITS SC (08:46)
[2024-04-21] MEDS: SENOKOT-S 1 TABLET PO (08:47)
[2024-04-21] MEDS: FLORASTOR 250 MG PO (08:47)
[2024-04-21] MEDS: LOW STRENGTH ASPIRIN 81 MG PO (08:47)
[2024-04-21] MEDS: ALTACE 10 MG PO (08:47)
[2024-04-21] MEDS: HEPARIN 5000 UNITS SC ×2 (08:47→19:21)
[2024-04-21] MEDS: GLUCOPHAGE XR EXTENDED RELEASE 1000 MG PO (08:47)
--- NOTE | 2024-04-21 08:54 | PHA.VAN.FU ---
Vancomycin Assessment / Plan
- Assessment
Renal Function: Stable
WBC's are: WNL
In the past 24 hrs, patient has been: Afebrile
Concomitant Antimicrobials: piperacillin/tazobactam
- Dosing Plan
Continue: Vanc 1250mg Q24H
- Monitoring Plan
No level(s) ordered at this time: consider levels in next few day
- Follow Up
Pharmacy will continue to follow.
Vancomycin Follow UP
- -
Patient Age: 88
Patient Sex: Female
Vancomycin Day #: 3
Indication: Eye Or Ent Infection
Requesting Provider: Dr. Pollard
Pertinent Antimicrobial Allergies:
no pertinent antibiotic allergies
Height / Weight:
Height 5 ft 3 in
Actual Weight 79.832 kg
Pertinent Past Medical History: DM II
- Vital Signs / Lab Results
Temp Pulse Resp BP Pulse Ox
98.1 F 57 20 132/55 95
04/21/24 07:30 04/21/24 07:30 04/21/24 07:30 04/21/24 07:30 04/21/24 07:30
Lab Results - Hematology
04/18/24 04/19/24 04/20/24
22:17 05:33 06:34
WBC 16.1 H 13.0 H 10.9 H
04/21/24
07:43
WBC 6.2
Lab Results - Chemistry
04/18/24 04/19/24 04/20/24
22:17 05:33 06:34
BUN 17 15 15
Creatinine 0.9 0.7 0.7
Estimated Creat Clear 48 61 53
Albumin 4.3
04/21/24
07:43
BUN 18 H
Creatinine 0.9
Estimated Creat Clear 42
Albumin
04/18/24 04/19/24
22:17 02:01
Lactic Acid 1.8 2.0
Microbiology Results
04/19/24 02:01 Blood Culture - Preliminary
Blood/Venous No Growth in 48 hours- Final report to follow
04/19/24 02:01 Blood Culture - Preliminary
Blood/Venous No Growth in 48 hours- Final report to follow
04/19/24 08:00 Urine Culture - Final
Urine NO GROWTH
04/19/24 06:42 MRSA Screen - Final
Nose No Methicillin Resistant Staphylococcus aureus isolated.
--- NOTE | 2024-04-21 09:05 | W.PN.HOSP.TC ---
Today's Communication/Plan
-
IV antibiotic. Brain MRI
Assessment / Plan
Assessment / Plan
Physical exam:
General: Acutely ill
HEENT: Normocephalic, Atraumatic and Moist Mucous Membranes. Left mandible erythema and tenderness and warmth.
Respiratory: Clear to Auscultation; Negative Wheezes, Rales or Rhonchi
Cardiac: Regular Rhythm and S1/S2
GI: Soft, Nontender and Nondistended
Musculoskeletal: No Clubbing, No Cyanosis and No Edema
Neuro: Awake, Alert and disoriented, weakness unclear if more focal in the left
Psych: Calm
A/P:
Left maxillofacial cellulitis, odontogenic in nature:
Initially Unasyn but switched to Zosyn and vancomycin due to concerns of spreading-clinically improving today.
Obtain MRSA and if negative will stop vancomycin
WBC 16.1--> 6.[address] scan for facial bones
Obtain panoramic x-ray--> periapical lucency left first mandibular molar
Pain control
Discussed with daughter over the phone prior
Will need dentist referral as outpatient
Transient decreased responsiveness and weakness:
Rule out stroke and or seizures
Neurology consulted
EEG
Status post MRA neck by neurology and no acute abnormality
Discussed with neurology today on 04/21
Plan for brain MRI
PT OT eval
Senile dementia:
Monitor behavior and mental status
Hypertension:
Continue ramipril 10 mg daily
Monitor blood pressure adjust medications accordingly
Hyperlipidemia:
Continue pravastatin 40 mg p.o. every night
Diabetes mellitus type 2:
Continue insulin sliding scale but increase to moderate coverage yesterday
Beginning of April hemoglobin A1c was 8.4
Resume metformin
Monitor blood sugar and adjust medications accordingly
Hypothyroidism:
Continue levothyroxine 50 mg p.o. daily
DVT prophylaxis:
Heparin SQ
CODE STATUS:
DNR
Anticipated Discharge: 24 - 48 hours
Subjective/Interval History
-
Date of Service: April 21, 2024
Patient is improving. Afebrile
Objective Data
-
Labs:
Laboratory Results
04/21/24
07:43
WBC 6.2
Hgb 11.5 L
Hct 37.5
Plt Count Pending
Sodium 137
Potassium 4.3
Chloride 108 H
Carbon Dioxide 18 L
BUN 18 H
Creatinine 0.9
Glucose 237 H
Calcium 8.1 L
Vital Signs:
Vital Signs
Temp Pulse Resp BP Pulse Ox
98.1 F 57 20 132/55 95
04/21/24 07:30 04/21/24 07:30 04/21/24 07:30 04/21/24 07:30 04/21/24 07:30
I&O
04/20/24 04/21/24 04/22/24
06:59 06:59 06:59
Intake Total 580 / 580 580 / 580
Output Total 200 / 200
Balance 380 / 380 580 / 580
[2024-04-21] MEDS: TYLENOL 650 MG PO (09:12)
[2024-04-21 10:31] LABS: Mean Platelet Volume 12.1 fL (7.4-10.4); Platelet Count 206 10^3/uL (130-400)
[2024-04-21 11:36] LABS: Glucose - Point of Care 301 mg/dl (70-99)
[2024-04-21] MEDS: NOVOLOG FLEXPEN-MODERATE RESISTANCE 7 UNITS SC (12:41)
[2024-04-21] MEDS: NSS (PRESERVATIVE FREE) 0.5 ML IV (12:48)
[2024-04-21] MEDS: ATIVAN 1 MG IV (12:48)
--- NOTE | 2024-04-21 14:48 | CM ---
Patient to return to [facility] when stable Clinicals faxed to admissions at [facility].
[facility]
Report: [phone]
Plan; to return to [facility].
[2024-04-21 15:26] VITALS: BP 113/50
[2024-04-21 16:25] LABS: Glucose - Point of Care 134 mg/dl (70-99)
[2024-04-21] MEDS: NOVOLOG FLEXPEN-MODERATE RESISTANCE SC (16:27)
--- NOTE | 2024-04-21 16:36 | W.PN.NEURO.1 ---
Today's Communication / Plan
-
.
Subjective/Objective
Subjective Data
Date of Service: April 21, 2024
Neurology Consultation Note
Ms. Tavarez reports no complaints. She has been afebrile. No reports of headaches, change in vision or strength.
Brain MRI is pending.
I have left a message for patient's daughter who was requested to return my call to clarify if cognitive baseline and clinical history.
Routine EEG showed moderate-to severe generalized slowing and infrequent triphasic waves, no epileptiform abnormalities.
PMH: dementia, ASCVD, HTN, DLP, DM, hypothyroidism, recurrent UTIs
PSH: PTCI, appendectomy, hemorrhoidectomy
SH: [facility] resident
All: Iodine
ROS: Negative for headache, change in vision, strength or sensation
General: Well developed. In no acute distress.
Cardio: Regular rate and rhythm without murmur. Extremities are without cyanosis or edema.
Neuro:
Mental Status: Awake, oriented to name and only. Follow simple requests. Nonfluent. No hemineglect
Cranial Nerves: Pupils are equally round . EOMs full. Blink to threat bilaterally no ptosis. No nystagmus. V1-V3 intact to light touch and pinprick bilaterally, symmetric. Face symmetric. Impaired hearing AU. The palate elevated well. SCMs
and traps 5/5. Tongue midline. No dysarthria.
Motor: all limbs are antigravity
Reflexes: Bilateral grasp. Negative clonus bilaterally
Coordination: No tremors myoclonic movements
Gait: deferred
Assessment and Plan:
I. Transient speech/behavioral arrest. Differential diagnosis includes vascular versus epileptic.
II. Multifactorial encephalopathy (metabolic, neurodegenerative)
III. Chronic R IC infarct
-Fall precautions
-Brain MRI wo alek whe able
-Continue aspirin 81 mg QD
-DVT prophylaxis.
I personally reviewed all radiology and labs along with past medical records pertinent to current medical problems. Total time spent in patient care is 35 minutes.
Thank you for allowing us to participate in the care of this patient. We will continue to follow. Please do not hesitate to contact us with any questions or concerns
Objective Data
Vital Signs
Temp Pulse Resp BP Pulse Ox
37.0 C 56 17 113/50 95
04/21/24 15:26 04/21/24 15:26 04/21/24 15:26 04/21/24 15:26 04/21/24 15:26
Lab Results
04/21/24 07:43
04/21/24 07:43
Sodium 137 mmol/L (135-145) 04/21/24 07:43
Potassium 4.3 mmol/L (3.5-5.1) 04/21/24 07:43
BUN 18 mg/dl (7-17) H 04/21/24 07:43
Glucose 237 mg/dl (70-99) H 04/21/24 07:43
Calcium 8.1 mg/dl (8.4-10.2) L 04/21/24 07:43
Patient Allergies
iodine Allergy (Verified 04/18/24 22:04)
Unknown
shellfish derived Allergy (Verified 04/18/24 22:04)
Chest pressure
Vital Signs and Labs
-
Vital Signs and Labs:
Vital Signs
Temp Pulse Resp BP Pulse Ox
37.0 C 56 17 113/50 95
04/21/24 15:26 04/21/24 15:26 04/21/24 15:26 04/21/24 15:26 04/21/24 15:26
Lab Results
04/21/24 07:43
04/21/24 07:43
Sodium 137 mmol/L (135-145) 04/21/24 07:43
Potassium 4.3 mmol/L (3.5-5.1) 04/21/24 07:43
BUN 18 mg/dl (7-17) H 04/21/24 07:43
Glucose 237 mg/dl (70-99) H 04/21/24 07:43
Calcium 8.1 mg/dl (8.4-10.2) L 04/21/24 07:43
Medications
-
Medications:
Generic Name Dose Route Start Last Admin
Trade Name Freq PRN Reason Stop Dose Admin
Acetaminophen 650 mg 04/19/24 04:51 04/21/24 09:12
Acetaminophen 325 Mg Tablet PO 05/17/24 04:50 650 mg
Q4HPRN PRN Administration
mild pain / temp > 101
Aspirin 81 mg 04/19/24 08:00 04/21/24 08:47
Aspirin 81 Mg Chewable Tablet PO 05/17/24 07:59 81 mg
DAILY AUGUSTINA Administration
Dextrose 12.5 grams 04/19/24 12:17
Dextrose 50% (0.5 Grams/Ml) 50 Ml Syringe IV 05/17/24 12:16
[id number] PRN
hypoglycemia
Protocol
Glucagon 1 mg 04/19/24 12:17
Glucagon 1 Mg Vial IM 05/17/24 12:16
PRN PRN
hypoglycemia
Protocol
Heparin Sodium 5,000 units 04/19/24 08:00 04/21/24 08:47
Heparin 5,000 Units/Ml 1 Ml Vial SC 05/17/24 07:59 5,000 units
Q12 AUGUSTINA Administration
Piperacillin Sod/Tazobactam Sod 3.375 gram in 50 mls @ 100 mls/hr 04/19/24 20:00 04/21/24 14:20
Zosyn IV 50 mls
Q6H AUGUSTINA Administration
Insulin Aspart 0 units 04/19/24 16:30 04/21/24 16:27
Insulin Aspart Moderate Resistance 300 Units/3 Ml Pen.Injctr SC 05/17/24 16:29 Not Given
AC AUGUSTINA
Protocol
Levothyroxine Sodium 50 mcg 04/19/24 06:00 04/21/24 05:39
Levothyroxine 50 Mcg Tablet PO 05/17/24 05:59 50 mcg
DAILY@0600 AUGUSTINA Administration
Metformin HCl 1,000 mg 04/20/24 13:00 04/21/24 08:47
Metformin 500 Mg Extended Release Tablet PO 05/18/24 12:59 1,000 mg
DAILY AUGUSTINA Administration
Polyethylene Glycol 17 grams 04/19/24 04:51
Polyethylene Glycol Powder 17 Grams Packet PO 05/17/24 04:50
HSPRN PRN
constipation
Pravastatin Sodium 40 mg 04/19/24 18:00 04/20/24 18:16
Pravastatin 40 Mg Tablet PO 05/17/24 17:59 40 mg
QPM AUGUSTINA Administration
Ramipril 10 mg 04/19/24 08:00 04/21/24 08:47
Ramipril (Altace) 10 Mg Capsule PO 05/17/24 07:59 10 mg
DAILY AUGUSTINA Administration
Saccharomyces Boulardii 250 mg 04/19/24 08:00 04/21/24 08:47
Saccharomyces Boulardi (Florastor) 250 Mg Capsule PO 05/17/24 07:59 250 mg
DAILY AUGUSTINA Administration
Senna/Docusate Sodium 1 tablet 04/19/24 08:00 04/21/24 08:47
Docusate W/Senna (Ivy-Colace) Tablet PO 05/17/24 07:59 1 tablet
DAILY AUGUSTINA Administration
Sodium Chloride 0 flush 04/19/24 06:00
Sodium Chloride 0.9% (Flush) Syringe IV 05/17/24 05:59
PER PROTOCOL AUGUSTINA
Home Medications
-
Home Medications
aspirin 81 mg chewable tablet 81 mg PO DAILY Blood Clot Prevention/Tx 08/24/13
ramipril 10 mg capsule 10 mg PO DAILY Blood Pressure 08/24/13
acetaminophen 325 mg tablet 650 mg PO Q4HPRN PRN mild pain/fever 02/13/22
bisacodyl 10 mg rectal suppository (Dulcolax (bisacodyl)) 10 mg [place] DAILYPRN PRN no bm 3 days, miralax ineffective 02/13/22
levothyroxine 50 mcg tablet 50 mcg PO DAILY Thyroid 02/13/22
pravastatin 40 mg tablet 40 mg PO QPM High Cholesterol 02/13/22
sennosides 8.6 mg-docusate sodium 50 mg tablet (Senokot-S) 2 tab-cap PO DAILY Constipation 02/13/22
Saccharomyces boulardii 250 mg capsule (Probiotic (S.boulardii)) 250 mg PO DAILY Gastrointestinal Issue 04/18/24
azithromycin 250 mg tablet 250 mg PO DAILY Infection 04/18/24
cholecalciferol (vitamin D3) 1,250 mcg (50,000 unit) tablet 1,250 mcg PO QMONTH Supplement 04/18/24
metformin 500 mg tablet,extended release 24 hr 1,000 mg PO DAILY Diabetes 04/18/24
polyethylene glycol 3350 17 gram oral powder packet (Miralax) 17 g PO HSPRN PRN constipation 04/18/24
[2024-04-21] MEDS: PRAVACHOL 40 MG PO (18:01)
[2024-04-21 21:24] LABS: Glucose - Point of Care 236 mg/dl (70-99)
[2024-04-21 23:35] VITALS: BP 152/74
[2024-04-22] MEDS: ZOSYN 50 IV ×4 (02:45→20:16)
[2024-04-22] MEDS: SYNTHROID 50 MCG PO (05:27)
[2024-04-22 05:30] VITALS: BMI 31.2
[2024-04-22 07:03] VITALS: BP 137/51
[2024-04-22 07:27] LABS: Glucose - Point of Care 319 mg/dl (70-99)
--- NOTE | 2024-04-22 08:52 | W.PN.HOSP.TC ---
Today's Communication/Plan
-
IV antibiotics. Plan for echocardiogram.
Assessment / Plan
Assessment / Plan
Physical exam:
General: Acutely ill
HEENT: Normocephalic, Atraumatic and Moist Mucous Membranes. Left mandible erythema and tenderness and warmth.
Respiratory: Clear to Auscultation; Negative Wheezes, Rales or Rhonchi
Cardiac: Regular Rhythm and S1/S2
GI: Soft, Nontender and Nondistended
Musculoskeletal: No Clubbing, No Cyanosis and No Edema
Neuro: Awake, Alert and oriented, weakness unclear if more focal in the left
Psych: Calm
Brain MRI:
Small foci of restricted diffusion within the right putamen/internal capsule, right temporal periventricular white matter and left caudate head consistent with acute infarctions and possibly embolic in nature.
Extensive global atrophy with sequelae of severe small vessel ischemic disease.
A/P:
Left maxillofacial cellulitis, odontogenic in nature:
On IV Zosyn and likely will switch to oral antibiotics tomorrow
Vancomycin stopped
WBC 16.1--> 6.[address] scan for facial bones
Obtain panoramic x-ray--> periapical lucency left first mandibular molar
Pain control
Will need dentist referral as outpatient
Discussed with daughter over the phone today
Acute stroke:
Started on ASA
Cont Pravastatin
Neurology on board
NIH
Will order an echocardiogram given concerns for embolic nature
PT OT
Transient decreased responsiveness and weakness:
Rule out stroke and or seizures
Neurology consulted
EEG
Status post MRA neck by neurology and no acute abnormality
Discussed with neurology today on 04/21
Status post brain MRI and results as above
PT OT eval
Senile dementia:
Monitor behavior and mental status
Hypertension:
Continue ramipril 10 mg daily
Monitor blood pressure adjust medications accordingly
Hyperlipidemia:
Continue pravastatin 40 mg p.o. every night
Diabetes mellitus type 2:
Continue insulin sliding scale but increase to moderate coverage yesterday
Beginning of April hemoglobin A1c was 8.4
Resumed metformin
Monitor blood sugar and adjust medications accordingly
Hypothyroidism:
Continue levothyroxine 50 mg p.o. daily
DVT prophylaxis:
Heparin SQ
CODE STATUS:
DNR
Anticipated Discharge: 24 - 48 hours
Subjective/Interval History
-
Date of Service: April 22, 2024
Patient tenderness and erythema in the neck area has decreased substantially. Afebrile. Still weak.
Objective Data
-
Vital Signs:
Vital Signs
Temp Pulse Resp BP Pulse Ox
97.9 F 50 18 137/51 95
04/22/24 07:03 04/22/24 07:03 04/22/24 07:03 04/22/24 07:03 04/22/24 07:03
I&O
04/21/24 04/22/24 04/23/24
06:59 06:59 06:59
Intake Total 580 / 580 1040 / 1040
Balance 580 / 580 1040 / 1040
[2024-04-22] MEDS: GLUCOPHAGE XR EXTENDED RELEASE 1000 MG PO (09:16)
[2024-04-22] MEDS: ALTACE 10 MG PO (09:17)
[2024-04-22] MEDS: FLORASTOR 250 MG PO (09:17)
[2024-04-22] MEDS: HEPARIN 5000 UNITS SC ×2 (09:17→20:16)
[2024-04-22] MEDS: LOW STRENGTH ASPIRIN 81 MG PO (09:17)
[2024-04-22] MEDS: SENOKOT-S 1 TABLET PO (09:17)
[2024-04-22] MEDS: NOVOLOG FLEXPEN-MODERATE RESISTANCE 7 UNITS SC (09:19)
[2024-04-22 10:11] VITALS: BP 154/74; PULSE 55; O2SAT 98
[2024-04-22 11:25] LABS: Glucose - Point of Care 260 mg/dl (70-99)
[2024-04-22] MEDS: NOVOLOG FLEXPEN-MODERATE RESISTANCE 5 UNITS SC (11:55)
--- NOTE | 2024-04-22 14:06 | CM ---
Plan is for patient to return to [facility] when stable.
[facility]
Report: [phone]
--- NOTE | 2024-04-22 14:44 | W.PN.NEURO.1 ---
Addendum entered and electronically signed by Inna Ulloa MD 04/23/24 13:14:
TTE-no evidence of intracardiac mass or thrombus
Original Note:
Today's Communication / Plan
-
.
Subjective/Objective
Subjective Data
Date of Service: April 22, 2024
Neurology follow-up note
Ms. Vincent reports no complaints.
24 h afebrile, mostly normotensive.
Brain MRI wo alek showed an acute right putamen/internal capsule, right temporal periventricular white matter and left caudate head infarcts.
Extensive global atrophy with sequelae of severe small vessel ischemic disease.
PMH: dementia, ASCVD, HTN, DLP, DM, hypothyroidism, recurrent UTIs
PSH: PTCI, appendectomy, hemorrhoidectomy
SH: [facility] resident
All: Iodine
ROS: Negative for headache, change in vision, strength or sensation
General: Well developed. In no acute distress.
Cardio: Regular rate and rhythm. Extremities are without cyanosis or edema.
Neuro:
Mental Status: Awake, oriented to name and only. Follow simple requests. Nonfluent. No hemineglect
Cranial Nerves: Pupils are equally round. EOMs full. Blinks to threat bilaterally no ptosis. No nystagmus. V1-V3 intact to light touch and pinprick bilaterally, symmetric. Face symmetric. Impaired hearing AU. The palate elevated well. SCMs
and traps 5/5. Tongue midline. No dysarthria.
Motor: all limbs are antigravity
Reflexes: Bilateral grasp. Negative clonus bilaterally
Coordination: No tremors myoclonic movements
Gait: deferred
Assessment and Plan:
I. Acute bihemispheric embolic infarcts.
II. Multifactorial encephalopathy (vascular, metabolic, neurodegenerative)
III. Chronic R IC infarct
-Fall precautions
-Continue aspirin 81 mg QD and Plavix 75 mg QD
-TTE
-Would defer vascular studies given underlying cognitive deficits
-DVT prophylaxis.
I personally reviewed all radiology and labs along with past medical records pertinent to current medical problems. Total time spent in patient care is 35 minutes.
Thank you for allowing us to participate in the care of this patient. We will continue to follow. Please do not hesitate to contact us with any questions or concerns
Objective Data
Vital Signs
Temp Pulse Resp BP Pulse Ox
36.6 C 50 18 137/51 95
04/22/24 07:03 04/22/24 07:03 04/22/24 07:03 04/22/24 07:03 04/22/24 07:03
Lab Results
04/21/24 07:43
04/21/24 07:43
Sodium 137 mmol/L (135-145) 04/21/24 07:43
Potassium 4.3 mmol/L (3.5-5.1) 04/21/24 07:43
BUN 18 mg/dl (7-17) H 04/21/24 07:43
Glucose 237 mg/dl (70-99) H 04/21/24 07:43
Calcium 8.1 mg/dl (8.4-10.2) L 04/21/24 07:43
Patient Allergies
iodine Allergy (Verified 04/18/24 22:04)
Unknown
shellfish derived Allergy (Verified 04/18/24 22:04)
Chest pressure
Vital Signs and Labs
-
Vital Signs and Labs:
Vital Signs
Temp Pulse Resp BP Pulse Ox
36.6 C 50 18 137/51 95
04/22/24 07:03 04/22/24 07:03 04/22/24 07:03 04/22/24 07:03 04/22/24 07:03
Lab Results
04/21/24 07:43
04/21/24 07:43
Sodium 137 mmol/L (135-145) 04/21/24 07:43
Potassium 4.3 mmol/L (3.5-5.1) 04/21/24 07:43
BUN 18 mg/dl (7-17) H 04/21/24 07:43
Glucose 237 mg/dl (70-99) H 04/21/24 07:43
Calcium 8.1 mg/dl (8.4-10.2) L 04/21/24 07:43
Medications
-
Medications:
Generic Name Dose Route Start Last Admin
Trade Name Freq PRN Reason Stop Dose Admin
Acetaminophen 650 mg 04/19/24 04:51 04/21/24 09:12
Acetaminophen 325 Mg Tablet PO 05/17/24 04:50 650 mg
Q4HPRN PRN Administration
mild pain / temp > 101
Aspirin 81 mg 04/19/24 08:00 04/22/24 09:17
Aspirin 81 Mg Chewable Tablet PO 05/17/24 07:59 81 mg
DAILY AUGUSTINA Administration
Dextrose 12.5 grams 04/19/24 12:17
Dextrose 50% (0.5 Grams/Ml) 50 Ml Syringe IV 05/17/24 12:16
[id number] PRN
hypoglycemia
Protocol
Glucagon 1 mg 04/19/24 12:17
Glucagon 1 Mg Vial IM 05/17/24 12:16
PRN PRN
hypoglycemia
Protocol
Heparin Sodium 5,000 units 04/19/24 08:00 04/22/24 09:17
Heparin 5,000 Units/Ml 1 Ml Vial SC 05/17/24 07:59 5,000 units
Q12 AUGUSTINA Administration
Piperacillin Sod/Tazobactam Sod 3.375 gram in 50 mls @ 100 mls/hr 04/19/24 20:00 04/22/24 09:18
Zosyn IV 50 mls
Q6H AUGUSTINA Administration
Insulin Aspart 0 units 04/19/24 16:30 04/22/24 11:55
Insulin Aspart Moderate Resistance 300 Units/3 Ml Pen.Injctr SC 05/17/24 16:29 5 units
AC AUGUSTINA Administration
Protocol
Levothyroxine Sodium 50 mcg 04/19/24 06:00 04/22/24 05:27
Levothyroxine 50 Mcg Tablet PO 05/17/24 05:59 50 mcg
DAILY@0600 AUGUSTINA Administration
Metformin HCl 1,000 mg 04/20/24 13:00 04/22/24 09:16
Metformin 500 Mg Extended Release Tablet PO 05/18/24 12:59 1,000 mg
DAILY AUGUSTINA Administration
Polyethylene Glycol 17 grams 04/19/24 04:51
Polyethylene Glycol Powder 17 Grams Packet PO 05/17/24 04:50
HSPRN PRN
constipation
Pravastatin Sodium 40 mg 04/19/24 18:00 04/21/24 18:01
Pravastatin 40 Mg Tablet PO 05/17/24 17:59 40 mg
QPM AUGUSTINA Administration
Ramipril 10 mg 04/19/24 08:00 04/22/24 09:17
Ramipril (Altace) 10 Mg Capsule PO 05/17/24 07:59 10 mg
DAILY AUGUSTINA Administration
Saccharomyces Boulardii 250 mg 04/19/24 08:00 04/22/24 09:17
Saccharomyces Boulardi (Florastor) 250 Mg Capsule PO 05/17/24 07:59 250 mg
DAILY AUGUSTINA Administration
Senna/Docusate Sodium 1 tablet 04/19/24 08:00 04/22/24 09:17
Docusate W/Senna (Ivy-Colace) Tablet PO 05/17/24 07:59 1 tablet
DAILY AUGUSTINA Administration
Sodium Chloride 0 flush 04/19/24 06:00
Sodium Chloride 0.9% (Flush) Syringe IV 05/17/24 05:59
PER PROTOCOL AUGUSTINA
Home Medications
-
Home Medications
aspirin 81 mg chewable tablet 81 mg PO DAILY Blood Clot Prevention/Tx 03/26/14
ramipril 10 mg capsule 10 mg PO DAILY Blood Pressure 08/24/13
acetaminophen 325 mg tablet 650 mg PO Q4HPRN PRN mild pain/fever 02/13/22
bisacodyl 10 mg rectal suppository (Dulcolax (bisacodyl)) 10 mg NM DAILYPRN PRN no bm 3 days, miralax ineffective 02/13/22
levothyroxine 50 mcg tablet 50 mcg PO DAILY Thyroid 02/13/22
pravastatin 40 mg tablet 40 mg PO QPM High Cholesterol 02/13/22
sennosides 8.6 mg-docusate sodium 50 mg tablet (Senokot-S) 2 tab-cap PO DAILY Constipation 02/13/22
Saccharomyces boulardii 250 mg capsule (Probiotic (S.boulardii)) 250 mg PO DAILY Gastrointestinal Issue 04/18/24
azithromycin 250 mg tablet 250 mg PO DAILY Infection 04/18/24
cholecalciferol (vitamin D3) 1,250 mcg (50,000 unit) tablet 1,250 mcg PO QMONTH Supplement 04/18/24
metformin 500 mg tablet,extended release 24 hr 1,000 mg PO DAILY Diabetes 04/18/24
polyethylene glycol 3350 17 gram oral powder packet (Miralax) 17 g PO HSPRN PRN constipation 04/18/24
[2024-04-22] MEDS: PLAVIX 75 MG PO (15:06)
[2024-04-22 15:28] VITALS: BP 135/69
[2024-04-22 16:27] LABS: Glucose - Point of Care 198 mg/dl (70-99)
[2024-04-22] MEDS: NOVOLOG FLEXPEN-MODERATE RESISTANCE 1 UNITS SC (17:11)
[2024-04-22] MEDS: PRAVACHOL 40 MG PO (17:11)
[2024-04-22 21:43] LABS: Glucose - Point of Care 232 mg/dl (70-99)
[2024-04-22 23:23] VITALS: BP 146/62
[2024-04-23] MEDS: ZOSYN 50 IV ×2 (01:57→08:51)
[2024-04-23] MEDS: SYNTHROID 50 MCG PO (05:32)
[2024-04-23 06:00] VITALS: BMI 30.3
[2024-04-23 08:06] VITALS: BP 157/71
[2024-04-23 08:41] LABS: Glucose - Point of Care 274 mg/dl (70-99)
[2024-04-23] MEDS: GLUCOPHAGE XR EXTENDED RELEASE 1000 MG PO (08:48)
[2024-04-23] MEDS: PLAVIX 75 MG PO (08:48)
[2024-04-23] MEDS: LOW STRENGTH ASPIRIN 81 MG PO (08:49)
[2024-04-23] MEDS: ALTACE 10 MG PO (08:49)
[2024-04-23] MEDS: FLORASTOR 250 MG PO (08:50)
[2024-04-23] MEDS: SENOKOT-S 1 TABLET PO (08:50)
[2024-04-23] MEDS: HEPARIN 5000 UNITS SC ×2 (08:51→19:29)
[2024-04-23] MEDS: NOVOLOG FLEXPEN-MODERATE RESISTANCE 5 UNITS SC ×2 (08:52→13:01)
--- NOTE | 2024-04-23 10:05 | W.PN.HOSP.TC ---
Today's Communication/Plan
-
Oral antibiotics. Discharge planning.
Assessment / Plan
Assessment / Plan
Physical exam:
General: Acutely ill
HEENT: Normocephalic, Atraumatic and Moist Mucous Membranes. Left mandible erythema and tenderness and warmth.
Respiratory: Clear to Auscultation; Negative Wheezes, Rales or Rhonchi
Cardiac: Regular Rhythm and S1/S2
GI: Soft, Nontender and Nondistended
Musculoskeletal: No Clubbing, No Cyanosis and No Edema
Neuro: Awake, Alert and oriented, weakness unclear if more focal in the left
Psych: Calm
Brain MRI:
Small foci of restricted diffusion within the right putamen/internal capsule, right temporal periventricular white matter and left caudate head consistent with acute infarctions and possibly embolic in nature.
Extensive global atrophy with sequelae of severe small vessel ischemic disease.
A/P:
Left maxillofacial cellulitis, odontogenic in nature:
Switch antibiotics to oral Augmentin. If stable in 24 hours given prior issues with changing antibiotic, then can be discharged.
WBC 16.1--> 6.[address] scan for facial bones
Obtain panoramic x-ray--> periapical lucency left first mandibular molar
Pain control
Will need dentist referral as outpatient
Discussed with daughter over the phone today
Acute stroke:
Started on ASA
Cont Pravastatin
Neurology on board
NIH
Echocardiogram results reviewed.
PT OT
Transient decreased responsiveness and weakness:
Rule out stroke and or seizures
Neurology consulted
EEG
Status post MRA neck by neurology and no acute abnormality
Discussed with neurology today on 04/21
Status post brain MRI and results as above
PT OT eval
Senile dementia:
Monitor behavior and mental status
Hypertension:
Continue ramipril 10 mg daily
Monitor blood pressure adjust medications accordingly
Hyperlipidemia:
Continue pravastatin 40 mg p.o. every night
Diabetes mellitus type 2:
Continue insulin sliding scale but increase to moderate coverage yesterday
Beginning of April hemoglobin A1c was 8.4
Resumed metformin
Monitor blood sugar and adjust medications accordingly
Hypothyroidism:
Continue levothyroxine 50 mg p.o. daily
DVT prophylaxis:
Heparin SQ
CODE STATUS:
DNR
Anticipated Discharge: Within 24 hours
Subjective/Interval History
-
Date of Service: April 23, 2024
Improving. Less tenderness. Weakness stable. Afebrile
Objective Data
-
Vital Signs:
Vital Signs
Temp Pulse Resp BP Pulse Ox
97.3 F 40 14 157/71 95
04/23/24 08:06 04/23/24 08:06 04/23/24 08:06 04/23/24 08:06 04/23/24 08:06
I&O
04/22/24 04/23/24 04/24/24
06:59 06:59 06:59
Intake Total 1040 / 1040 480 / 480
Balance 1040 / 1040 480 / 480
--- NOTE | 2024-04-23 12:04 | CM ---
CM reviewed chart, patient likely for discharge tomorrow, back to [facility]. CM placed call to patients daughter, Leda, discussed plan for discharge. Patient will require ambulance transport, forms placed on chart. IMM reviewed with
catalino, verbally agreeable to plan, placed on chart. [facility]. CM will continue to follow for all discharge planning needs.
Plan; return to [facility], ambulance forms on chart.
[facility]
Report: [phone]
[2024-04-23 12:14] LABS: Glucose - Point of Care 293 mg/dl (70-99)
[2024-04-23] MEDS: AUGMENTIN 875 MG/125 MG 1 TABLET PO ×2 (14:43→19:28)
[2024-04-23 15:00] VITALS: BP 165/71
[2024-04-23 17:05] LABS: Glucose - Point of Care 151 mg/dl (70-99)
[2024-04-23] MEDS: NOVOLOG FLEXPEN-MODERATE RESISTANCE 1 UNITS SC (17:12)
[2024-04-23] MEDS: PRAVACHOL 40 MG PO (17:56)
[2024-04-23 21:26] LABS: Glucose - Point of Care 197 mg/dl (70-99)
[2024-04-23 22:40] VITALS: BP 164/77
[2024-04-24] MEDS: SYNTHROID 50 MCG PO (05:34)
[2024-04-24 06:21] VITALS: BMI 27.9
[2024-04-24 07:00] VITALS: BP 168/73
[2024-04-24 08:48] LABS: Glucose - Point of Care 275 mg/dl (70-99)
--- NOTE | 2024-04-24 09:27 | W.PN.HOSP.TC ---
Today's Communication/Plan
-
Discharge planning today
Assessment / Plan
Assessment / Plan
Physical exam:
General: No acute distress
HEENT: Normocephalic, Atraumatic and Moist Mucous Membranes. Left mandible erythema and tenderness and warmth improved substantially and almost nonexistent.
Respiratory: Clear to Auscultation; Negative Wheezes, Rales or Rhonchi
Cardiac: Regular Rhythm and S1/S2
GI: Soft, Nontender and Nondistended
Musculoskeletal: No Clubbing, No Cyanosis and No Edema
Neuro: Awake, Alert and oriented, weakness unclear if more focal in the left
Psych: Calm
Brain MRI:
Small foci of restricted diffusion within the right putamen/internal capsule, right temporal periventricular white matter and left caudate head consistent with acute infarctions and possibly embolic in nature.
Extensive global atrophy with sequelae of severe small vessel ischemic disease.
A/P:
Left maxillofacial cellulitis, odontogenic in nature:
Switch antibiotics to oral Augmentin. If stable in 24 hours given prior issues with changing antibiotic, then can be discharged.
WBC 16.1--> 6.[address] scan for facial bones
Obtain panoramic x-ray--> periapical lucency left first mandibular molar
Pain control
Will need dentist referral as outpatient
Discussed with daughter over the phone today
Acute stroke:
Started on ASA
Cont Pravastatin
Neurology on board
NIH
Echocardiogram results reviewed.
PT OT
Transient decreased responsiveness and weakness:
Rule out stroke and or seizures
Neurology consulted
EEG
Status post MRA neck by neurology and no acute abnormality
Discussed with neurology today on 04/21
Status post brain MRI and results as above
PT OT eval
Senile dementia:
Monitor behavior and mental status
Hypertension:
Continue ramipril 10 mg daily
Monitor blood pressure adjust medications accordingly
Hyperlipidemia:
Continue pravastatin 40 mg p.o. every night
Diabetes mellitus type 2:
Continue insulin sliding scale but increase to moderate coverage yesterday
Beginning of April hemoglobin A1c was 8.4
Resumed metformin
Monitor blood sugar and adjust medications accordingly
Hypothyroidism:
Continue levothyroxine 50 mg p.o. daily
DVT prophylaxis:
Heparin SQ
CODE STATUS:
DNR
Anticipated Discharge: Today
Subjective/Interval History
-
Date of Service: April 24, 2024
No new complaints.
Objective Data
-
Vital Signs:
Vital Signs
Temp Pulse Resp BP Pulse Ox
98.2 F 42 18 168/73 95
04/24/24 07:00 04/24/24 07:00 04/24/24 07:00 04/24/24 07:00 04/24/24 07:00
I&O
04/23/24 04/24/24 04/25/24
06:59 06:59 06:59
Intake Total 480 / 480 80 / 80
Balance 480 / 480 80 / 80
[2024-04-24] MEDS: NOVOLOG FLEXPEN-MODERATE RESISTANCE 5 UNITS SC (09:29)
[2024-04-24] MEDS: AUGMENTIN 875 MG/125 MG 1 TABLET PO (09:30)
[2024-04-24] MEDS: GLUCOPHAGE XR EXTENDED RELEASE 1000 MG PO (09:31)
[2024-04-24] MEDS: ALTACE 10 MG PO (09:31)
[2024-04-24] MEDS: FLORASTOR 250 MG PO (09:32)
[2024-04-24] MEDS: SENOKOT-S 1 TABLET PO (09:32)
[2024-04-24] MEDS: PLAVIX 75 MG PO (09:32)
[2024-04-24] MEDS: LOW STRENGTH ASPIRIN 81 MG PO (09:32)
[2024-04-24] MEDS: HEPARIN 5000 UNITS SC (09:33)
--- NOTE | 2024-04-24 10:46 | W.DCSUMMARY ---
Discharge Summary
Discharge Data
Date of Admission: 04/19/24
Date of Discharge: 04/24/24
-
Pending Results: No
Hospital Course
Patient 88 years old female with history of hypertension, hypothyroidism, diabetes mellitus, dementia, came into the house with left lower face erythema and swelling and found to have left facial cellulitis. Her cellulitis was odontogenic in
etiology. She was initially placed on Unasyn but her cellulitis was getting worse so she was changed to IV Zosyn and vancomycin and she is responding quite well. Images did not show any discernible abscess therefore no surgical intervention
required. Later on, her antibiotics were switched to IV Zosyn only and subsequently changed to oral Augmentin. She continued to do well and her infection has been under control. She will finish outpatient antibiotics. She does need to see a
dentist as outpatient to address the etiology of her infection. Her course was complicated with weakness and she had an episode of unresponsiveness prior to coming in so neurology was consulted and she had findings consistent with stroke by MRI.
She was started on aspirin and Plavix and continue on statins. Echocardiogram unremarkable. Otherwise, patient is hemodynamically stable and neurologically intact at the moment. She will be discharged back to her skilled facility today.
Discharge duration: 35 minutes
Discharge Plan
-
Patient Disposition: Residential/SNF
Discharge Diagnosis/Procedures: Left maxillofacial cellulitis, odontogenic etiology. Acute stroke. Senile dementia.
Diet: Diabetic, Carb Controlled
Activity: As tolerated
Blood Work: Please PCP to order CBC, BMP within 1 week
Others Tests: Needs to see a dentist within the next 1 to 2 weeks.
Referrals:
Giuseppe Palafox DO [Family Provider] - in less than 1 week
Prescriptions:
New
clopidogrel 75 mg Tablet
75 mg PO DAILY 30 Days Qty: 30 0RF
amoxicillin-pot clavulanate 875-125 mg Tablet
1 tab PO Q12 7 Days Qty: 14 0RF
Continued
aspirin 81 MG tablet,chewable
81 mg PO DAILY
ramipril 10 MG capsule
10 mg PO DAILY
levothyroxine 50 mcg Tablet
50 mcg PO DAILY
acetaminophen 325 mg Tablet
650 mg PO Q4HPRN MDD 3000 mg PRN (Reason: mild pain/fever)
pravastatin 40 mg Tablet
40 mg PO QPM
sennosides-docusate sodium [Senokot-S] 8.6-50 mg Tablet
2 tab-cap PO DAILY
bisacodyl [Dulcolax (bisacodyl)] 10 mg Suppository
10 mg ID DAILYPRN PRN (Reason: no bm 3 days, miralax ineffective)
polyethylene glycol 3350 [Miralax] 17 gram Powder In Packet
17 g PO HSPRN PRN (Reason: constipation)
metformin 500 mg Tablet Extended Release 24 Hr
1,000 mg PO DAILY
Saccharomyces boulardii [Probiotic (S.boulardii)] 250 mg Capsule
250 mg PO DAILY
Patient Comments:
04/18/24: to take for 7 days, starting 04/19/24
cholecalciferol (vitamin D3) 1,250 mcg (50,000 unit) Tablet
1,250 mcg PO QMONTH
Rx Instructions:
on Thursday
Discontinued
azithromycin 250 mg Tablet
250 mg PO DAILY
Patient Comments:
04/18/24: to take for 4 days, starting on 04/19/24
Discharge Orders:
Discharge Patient (As Directed); Ordered 04/24/24
Ordered By: Jeff Pollard
Discharge Date and Time
Print Language: AFGHAN
--- NOTE | 2024-04-24 10:59 | CM ---
CM reviewed chart, patient for discharge today. Call placed to [facility], aware of patient return. Patient scheduled for 3:00-3:30 p.m. ambulance transport, voicemail left for daughter Leda to provide update. CM will continue to follow
for all discharge planning needs.
Plan; return to [facility], 3:00-3:30 p.m. ambulance transport
[facility]
Report: [phone]
[2024-04-24 12:44] LABS: Glucose - Point of Care 242 mg/dl (70-99)
[2024-04-24] MEDS: NOVOLOG FLEXPEN-MODERATE RESISTANCE 3 UNITS SC (13:32)
[2024-04-24 14:12] VITALS: BP 157/66
== END 2024-04-24 15:29 | DRG 64 ==
LOC: 4 WEST ACU 03:33
PROVIDERS: ADMITTING PHYSICIAN Hospitalist; ATTENDING PHYSICIAN Hospitalist; CONSULT PHYSICIAN Psychiatry & Neurology Neurology; EMERGENCY PHYSICIAN Emergency Medicine; FAMILY PHYSICIAN Student in an Organized Health Care Education/Training Program
DX: I63.9 Cerebral infarction, unspecified (principal); G93.41 Metabolic encephalopathy; L03.211 Cellulitis of face; Z11.52 Encounter for screening for COVID-19; Z79.82 Long term (current) use of aspirin; Z86.73 Personal history of transient ischemic attack (TIA), and cerebral infarction without residual deficits; F03.90 Unspecified dementia, unspecified severity, without behavioral disturbance, psychotic disturbance, mood disturbance, and anxiety; I10 Essential (primary) hypertension; E78.00 Pure hypercholesterolemia, unspecified; E11.8 Type 2 diabetes mellitus with unspecified complications; E03.9 Hypothyroidism, unspecified; Z66 Do not resuscitate; L89.322 Pressure ulcer of left buttock, stage 2
CPT/HCPCS: 70355; 70487; 70547; 70551; 80048; 80053; 81003; 81015; 82962; 83605; 84484; 85025; 85027; 87040; 87070; 87086; 87502; 87811; 92507; 92523; 92526; 92610; 93005; 93306; 95816; 96361; 96372; 96374; 96375; 97116; 97162; 97166; 97535; 99285; Q9967

== ENCOUNTER → 2024-05-02 09:01 | Outpatient (REF) | payer OTHER, MEDICARE, SELFPAY ==
[2024-05-02 10:53] LABS: % Basophils 0.5 % (0-2); % Immature Granulocytes 1.2 % (0-0.5); % Lymphocytes 22.9 % (20.5-51.1); % Monocytes 8.1 % (1.7-9.3); % Neutrophils 63.3 % (42.2-75.2); Absolute Eosinophils 0.3 10^3/uL (0-0.7); Absolute Immature Granulocytes 0.1 10^3/uL (0-0.05); Absolute Lymphocytes 1.9 10^3/uL (1.2-3.4); Absolute Monocytes 0.7 10^3/uL (0.1-0.6); Absolute Neutrophils 5.3 10^3/uL (1.4-6.5); Hematocrit 38.1 % (37.0-47.0); Hemoglobin 11.9 g/dL (12.0-16.0); Mean Corp Hgb Conc. 31.2 g/dL (33.0-37.0); Mean Corpuscular Hgb 28.9 pg (27.0-31.0); Mean Corpuscular Volume 92.5 fL (81.0-99.0); Mean Platelet Volume 12.3 fL (7.4-10.4); Nucleated Red Blood Cells % 0 %; Platelet Count 239 10^3/uL (130-400); Red Blood Cell Count 4.12 10^6/uL (4.20-5.40); Red Cell Dist. Width 14.6 % (11.5-14.5); White Blood Cell Count 8.4 10^3/uL (4.8-10.8)
[2024-05-02 11:31] LABS: Blood Urea Nitrogen 15 mg/dl (7-17); Calcium 8.7 mg/dl (8.4-10.2); Carbon Dioxide 27 mmol/L (22-30); Chloride 101 mmol/L (98-107); Glucose 157 mg/dl (70-99); Potassium 4.2 mmol/L (3.5-5.1); Sodium 139 mmol/L (135-145); eGFR > 60.00
== END ==
LOC: OLABN 09:01
PROVIDERS: ATTENDING PHYSICIAN Student in an Organized Health Care Education/Training Program
DX: K12.2 Cellulitis and abscess of mouth (principal)
CPT/HCPCS: 36415; 80048; 85025

== ENCOUNTER → 2024-05-11 09:26 | Outpatient (REF) | payer OTHER, MEDICARE, SELFPAY ==
[2024-05-11 10:57] LABS: ALT (SGPT) 15 U/L (0-35); AST (SGOT) 18 U/L (14-36); Albumin 3.2 g/dl (3.5-5.0); Alkaline Phosphatase 69 U/L (38-126); Blood Urea Nitrogen 11 mg/dl (7-17); Calcium 8.6 mg/dl (8.4-10.2); Carbon Dioxide 30 mmol/L (22-30); Chloride 99 mmol/L (98-107); Glucose 173 mg/dl (70-99); Potassium 4.2 mmol/L (3.5-5.1); Sodium 137 mmol/L (135-145); Total Bilirubin 0.5 mg/dl (0.2-1.3); Total Protein 5.9 g/dl (6.3-8.2); eGFR > 60.00
[2024-05-11 10:59] LABS: % Basophils 0.5 % (0-2); % Eosinophils 3.1 % (0-6); % Immature Granulocytes 0.4 % (0-0.5); % Lymphocytes 21.5 % (20.5-51.1); % Monocytes 9.1 % (1.7-9.3); % Neutrophils 65.4 % (42.2-75.2); Absolute Eosinophils 0.2 10^3/uL (0-0.7); Absolute Lymphocytes 1.6 10^3/uL (1.2-3.4); Absolute Monocytes 0.7 10^3/uL (0.1-0.6); Hematocrit 35.5 % (37.0-47.0); Hemoglobin 11.3 g/dL (12.0-16.0); Mean Corp Hgb Conc. 31.8 g/dL (33.0-37.0); Mean Corpuscular Hgb 29.3 pg (27.0-31.0); Mean Platelet Volume 11.8 fL (7.4-10.4); Nucleated Red Blood Cells % 0 %; Platelet Count 260 10^3/uL (130-400); Red Blood Cell Count 3.86 10^6/uL (4.20-5.40); Red Cell Dist. Width 14.1 % (11.5-14.5); White Blood Cell Count 7.6 10^3/uL (4.8-10.8)
== END ==
LOC: OLABN 09:26
PROVIDERS: ATTENDING PHYSICIAN Student in an Organized Health Care Education/Training Program
DX: K12.2 Cellulitis and abscess of mouth (principal)
CPT/HCPCS: 36415; 80053; 85025